=== PATIENT | female | born 1990 | race Caucasian/White ===

== ENCOUNTER 2022-05-31 20:15 | Observation (INO) | payer OTHER ==
[2022-05-31] MEDS ORDERED: MORPHINE SULFATE 2 MG INJ IV ONE (20:40)
[2022-05-31] MEDS ORDERED: Zofran 4 MG/2 ML VIAL IV ONE (20:42)
[2022-05-31] MEDS ORDERED: MORPHINE SULFATE 2 MG INJ ONE (20:43)
[2022-05-31] MEDS ORDERED: Sodium Chloride 0.9% 1000 ML 1,000 ML ONE (20:43)
[2022-05-31] MEDS ORDERED: Zofran 4 MG/2 ML VIAL ONE (20:43)
[2022-05-31] MEDS ORDERED: Sodium Chloride 0.9% 1000 ML 1,000 ML IV SCH (20:45)
[2022-05-31 21:04] LABS: Basophil (Absolute #) 0.03 x10^3/uL (0-0.4); Eosinophil % 0.5 % (0.00-5.0); Eosinophil (Absolute #) 0.07 x10^3/uL (0-0.5); Hematocrit 41.7 % (35-47); Hemoglobin 12.4 g/dL (12.0-16.0); Lymphocyte (Absolute #) 1.73 x10^3/uL (1.0-4.6); Lymphocytes % 13.2 % (24.0-44.0); Mean Cell Volume 94.1 fL (78-100); Mean Corpuscular Hgb Concent. 29.7 g/dL (32-36); Mean Platelet Volume 9.8 fL (7.5-11.0); Monocyte (Absolute #) 0.67 x10^3/uL (0.0-1.3); Monocytes % 5.1 % (0.0-12.0); Neutrophil % 80.7 % (36.0-66.0); Platelet Count 302 x10^3/uL (150-450); Red Blood Count 4.43 x10^6/uL (4.1-5.4); Red Cell Distribution Width 13.6 % (11.5-14.0); White Blood Count 13.1 x10^3/uL (4.0-10.5)
[2022-05-31 21:27] LABS: ALBUMIN 4.3 g/dL (3.5-5.0); ALKALINE PHOSPHATASE 47 U/L (38-126); ANION GAP 17.2 MEQ/L (5-15); BLOOD UREA NITROGEN 12 mg/dL (7-17); CHLORIDE 104 mmol/L (98-107); Calcium 9.3 mg/dL (8.4-10.2); Carbon Dioxide 18 mmol/L (22-30); Creatinine 1 0.66 mg/dL (0.52-1.04); EST GLOMERULAR FILTRATION RATE > 60.0 ML/MIN; Glucose 107 mg/dL (74-106); LIPASE 48 U/L (23-300); Potassium 4.3 mmol/L (3.5-5.1); SGOT/AST 25 U/L (14-36); SGPT/ALT 16 U/L (0-35); SODIUM 135 mmol/L (137-145); TROPONIN < 0.012 ng/mL (0.000-0.034); Total Protein 7.2 g/dL (6.3-8.2)
[2022-05-31] MEDS ORDERED: Hydromorphone 1 mg/ml Injection IV ONE (22:04)
--- NOTE | 2022-05-31 22:05 | ERPHSYRPT ---
- History of Present Illness Time Seen by Provider: 05/31/22 20:30 Historian: patient Exam Limitations: no limitations Patient Subjective Stated Complaint: pt states she has been feeling nauseated at 4pm today, states that she has vomited 4 times and has abdominal paion in the epigastric area that she rates as 7/10 Triage Nursing Assessment: pt is alert and oriented, walked into room without assist, ot was holding abdomen stating that she feels nauseated and has pain in abdomen 7/10 Physician History: Patient is a 31-year-old female presents to emergency department for evaluation of epigastric pain. Epigastric pain started at 4 PM today approximately 5 hours prior to arrival. Patient states he vomited 4 times. Patient states pain is worse after eating meals. Pain improves when she fast. Epigastric pain rated 7 out of 10. No associated chest pain or shortness of breath. No diarrhea. No trauma. Symptoms are mild to moderate in intensity. Palpation reproduces symptoms. Pain worsens after meals. Patient denies a history of the same. She voices no other complaints or concerns at this time. Portions of this note were created with voice recognition technology. There may be grammatical, spelling, punctuation or sound alike errors Timing/Duration: today Activities at Onset: none Quality: aching Abdominal Pain Onset Location: epigastric Pain Radiation: no radiation Severity of Pain-Max: moderate Severity of Pain-Current: mild Modifying Factors: Improves With: other Associated Symptoms: denies symptoms, nausea, vomiting Previous symptoms: no prior history Allergies/Adverse Reactions: Penicillins Allergy (Mild, Verified 05/11/13 04:16) amoxicillin Allergy (Verified 05/31/22 20:32) Sulfa (Sulfonamide Antibiotics) Allergy (Verified 05/31/22 20:32) Home Medications: No Home Meds [No Home Meds] 0 05/11/13 [History] Hx Tetanus, Diphtheria Vaccination/Date Given: Yes Hx Influenza Vaccination/Date Given: No Hx Pneumococcal Vaccination/Date Given: No Travel Risk - International Travel Have you traveled outside of the country in past 3 weeks: No - Coronavirus Screening Are you exhibiting any of the following symptoms?: No Close contact with a COVID-19 positive Pt in past 14-21 Days: No - Vaccine Status Have you recieved a Covid-19 vaccination: Yes Insurance Claims Supervisor: [employer] - Review of Systems Constitutional: No Symptoms, No Fever, No Chills Eyes: No Symptoms Ears, Nose, & Throat: No Symptoms Respiratory: No Symptoms, No Cough, No Dyspnea Cardiac: No Symptoms, No Chest Pain, No Edema, No Syncope Abdominal/Gastrointestinal: No Symptoms, No Abdominal Pain, No Nausea, No Vomiting, No Diarrhea Genitourinary Symptoms: Incontinence, No Dysuria Musculoskeletal: No Symptoms, No Back Pain, No Neck Pain Skin: No Symptoms, No Rash Neurological: No Symptoms, No Dizziness, No Focal Weakness, No Sensory Changes Psychological: No Symptoms Endocrine: No Symptoms Hematologic/Lymphatic: No Symptoms Immunological/Allergic: No Symptoms All Other Systems: Reviewed and Negative - Past Medical History Pertinent Past Medical History: No - Past Surgical History Past Surgical History: No - Social History Smoking Status: Never smoker Exposure to second hand smoke: No Alcohol Use: None Drug Use: none Patient Lives Alone: No Significant Family History: no pertinent family hx - Female History Hx Last Menstrual Period: 05/15/22 Hx Now: No - Nursing Vital Signs Nursing Vital Signs: Initial Vital Signs Temperature 98.7 F 05/31/22 20:22 Pulse Rate 90 05/31/22 20:22 Respiratory Rate 18 05/31/22 20:22 Blood Pressure 142/85 05/31/22 20:22 O2 Sat by Pulse Oximetry 100 05/31/22 20:22 Pain Scale Pain Intensity 7 - Physical Exam General Appearance: no apparent distress, alert Eye Exam: PERRL/EOMI, eyes nml inspection Ears, Nose, Throat Exam: normal ENT inspection, TMs normal, pharynx normal, moist mucous membranes Neck Exam: normal inspection, non-tender, supple, full range of motion Respiratory Exam: normal breath sounds, lungs clear, airway intact, No chest tenderness, No respiratory distress Cardiovascular Exam: regular rate/rhythm, normal heart sounds, normal peripheral pulses Gastrointestinal/Abdomen Exam: soft, tenderness, other (Epigastric tenderness to palpation. No right upper quadrant pain. Overlying soft tissue intact. No signs of trauma.), No mass Back Exam: normal inspection, normal range of motion, No CVA tenderness, No ada tebral tenderness Extremity Exam: normal inspection, normal range of motion, pelvis stable Neurologic Exam: alert, oriented x 3, cooperative, normal mood/affect, nml cerebellar function, sensation nml, No motor deficits Skin Exam: normal color, warm, dry Lymphatic Exam: No adenopathy SpO2 Interpretation: normal SpO2: 98 O2 Delivery: Room Air - Course Nursing assessment & vital signs reviewed: Yes - CT Exams Abdomen/Pelvis CT Interpretation: Tele-radiologist Report (Many gallstones. No definitive inflammatory change. I asked appendix is distended up to 8 mm. There is subtle stranding around the pancreas. Mild early acute pancreatitis not excluded based on examination but the history is that of upper abdominal pain.) - Radiology Ultrasound Exam Gallbladder Ultrasound: discussed w/radiologist (Per nurse transplant cholelithiasis. No cholecystitis) Ordered Tests: Active Orders 24 hr Category Date Time Status IV Insertion STAT Care 05/31/22 20:40 Active NPO Diet 05/31/22 22:05 Active ABDOMEN AND PELVIS W/0 CONTRAS [CT] Stat Exams 05/31/22 20:40 Taken GALLBLADDER [US] Stat Exams 05/31/22 22:48 Taken CBC W DIFF Stat Lab 05/31/22 20:55 Completed CMP Stat Lab 05/31/22 20:55 Completed HCG,QUALITATIVE URINE Stat Lab 05/31/22 22:13 Completed LIPASE Stat Lab 05/31/22 20:55 Completed TROPONIN Q4H Lab 06/01/22 00:45 Ordered TROPONIN Q4H Lab 06/01/22 04:45 Ordered TROPONIN Stat Lab 05/31/22 20:55 Completed UA W/RFX CULTURE Stat Lab 05/31/22 22:13 Completed Transfer Order Routine Transfer 05/31/22 Ordered Medication Summary Generic Name Dose Route Start Last Admin Trade Name Freq PRN Reason Stop Dose Admin Sodium Chloride 1,000 mls @ 100 mls/hr 05/31/22 20:45 05/31/22 20:46 Sodium Chloride 0.9% 1000 Ml IV 06/30/22 20:44 100 mls/hr .Q10H WILLIAM Administration Discontinued Medications Generic Name Dose Route Start Last Admin Trade Name Freq PRN Reason Stop Dose Admin Hydromorphone HCl 0.5 mg 05/31/22 22:04 05/31/22 22:06 Hydromorphone 1 Mg/1ml Inj 1 Mg/Ml Syringe IV 05/31/22 22:05 0.5 mg STAT ONE Administration Hydromorphone HCl Confirm 05/31/22 22:06 Hydromorphone 1 Mg/1ml Inj 1 Mg/Ml Syringe Administered 05/31/22 22:07 Dose 1 mg .ROUTE .STK-MED ONE Morphine Sulfate 2 mg 05/31/22 20:40 05/31/22 20:46 Morphine Sulfate 2 Mg/Ml Inj IV 05/31/22 20:41 2 mg STAT ONE Administration Morphine Sulfate Confirm 05/31/22 20:43 Morphine Sulfate 2 Mg/Ml Inj Administered 05/31/22 20:44 Dose 2 mg .ROUTE .STK-MED ONE Ondansetron HCl 4 mg 05/31/22 20:42 05/31/22 20:46 Ondansetron Hcl 4 Mg/2 Ml Vial IV 05/31/22 20:43 4 mg STAT ONE Administration Ondansetron HCl Confirm 05/31/22 20:43 Ondansetron Hcl 4 Mg/2 Ml Vial Administered 05/31/22 20:44 Dose 4 mg .ROUTE .STK-MED ONE Lab/Rad Data: Laboratory Result Diagrams 05/31/22 20:55 05/31/22 20:55 Laboratory Results 05/31/22 05/31/22 05/31/22 Range/Units 22:13 22:13 21:58 WBC (4.0-10.5) x10^3/uL RBC (4.1-5.4) x10^6/uL Hgb (12.0-16.0) g/dL Hct (35-47) % MCV (78-100) fL MCH (26-32) pg MCHC (32-36) g/dL RDW (11.5-14.0) % Plt Count (150-450) x10^3/uL MPV (7.5-11.0) fL Gran % (36.0-66.0) % Immature Gran % (Auto) (0.00-0.4) % Nucleat RBC Rel Count (0.00-0.1) % Eos # (Auto) (0-0.5) x10^3/uL Immature Gran # (Auto) (0.00-0.03) x10^3u/L Absolute Lymphs (auto) (1.0-4.6) x10^3/uL Absolute Monos (auto) (0.0-1.3) x10^3/uL Absolute Nucleated RBC (0.00-0.01) x10^3u/L Lymphocytes % (24.0-44.0) % Monocytes % (0.0-12.0) % Eosinophils % (0.00-5.0) % Basophils % (0.0-0.4) % Absolute Granulocytes (1.4-6.9) x10^3/uL Basophils # (0-0.4) x10^3/uL Sodium (137-145) mmol/L Potassium (3.5-5.1) mmol/L Chloride (98-107) mmol/L Carbon Dioxide (22-30) mmol/L Anion Gap (5-15) MEQ/L BUN (7-17) mg/dL Creatinine (0.52-1.04) mg/dL Estimated GFR ML/MIN Glucose (74-106) mg/dL Calcium (8.4-10.2) mg/dL Total Bilirubin (0.2-1.3) mg/dL AST (14-36) U/L ALT (0-35) U/L Alkaline Phosphatase (38-126) U/L Troponin I (0.000-0.034) ng/mL Serum Total Protein (6.3-8.2) g/dL Albumin (3.5-5.0) g/dL Lipase (23-300) U/L Urinalys Dipstick Clnc MAIN LAB Urine Color YELLOW (YELLOW) Urine Appearance CLEAR (CLEAR) Urine pH 6.0 (5-6) Ur Specific [place] 1.015 (1.005-1.025) POC Urine Protein Conf NEGATIVE (Negative) Urine Ketones NEGATIVE (NEGATIVE) Urine Nitrite NEGATIVE (NEGATIVE) Urine Bilirubin NEGATIVE (NEGATIVE) Urine Urobilinogen 0.2 (0-1) mg/dL Urine Leukocytes NEGATIVE (NEGATIVE) Urine WBC (Auto) 0-2 (0-5) /HPF Urine RBC (Auto) NONE (0-2) /HPF U Epithel Cells (Auto) RARE (FEW) /HPF Urine Bacteria (Auto) RARE (NEGATIVE) /HPF Urine RBC NEGATIVE (0-5) Geo/ul Other Casts (Auto) NEGATIVE (NEGATIVE) /LPF Urine Mucus (Auto) SLIGHT (NEGATIVE) /HPF Ur Culture Indicated? NO Urine Glucose NEGATIVE (NEGATIVE) mg/dL Urine HCG, Qual NEGATIVE (Negative) Influenza Type A Ag NEGATIVE (NEGATIVE) Influenza Type B Ag NEGATIVE (NEGATIVE) RSV (PCR) NEGATIVE (Negative) SARS-CoV-2 (PCR) NEGATIVE (NEGATIVE) 05/31/22 05/31/22 Range/Units 20:55 20:55 WBC 13.1 H (4.0-10.5) x10^3/uL RBC 4.43 (4.1-5.4) x10^6/uL Hgb 12.4 (12.0-16.0) g/dL Hct 41.7 (35-47) % MCV 94.1 (78-100) fL MCH 28.0 (26-32) pg MCHC 29.7 L (32-36) g/dL RDW 13.6 (11.5-14.0) % Plt Count 302 (150-450) x10^3/uL MPV 9.8 (7.5-11.0) fL Gran % 80.7 H (36.0-66.0) % Immature Gran % (Auto) 0.3 (0.00-0.4) % Nucleat RBC Rel Count 0.0 (0.00-0.1) % Eos # (Auto) 0.07 (0-0.5) x10^3/uL Immature Gran # (Auto) 0.04 H (0.00-0.03) x10^3u/L Absolute Lymphs (auto) 1.73 (1.0-4.6) x10^3/uL Absolute Monos (auto) 0.67 (0.0-1.3) x10^3/uL Absolute Nucleated RBC 0.00 (0.00-0.01) x10^3u/L Lymphocytes % 13.2 L (24.0-44.0) % Monocytes % 5.1 (0.0-12.0) % Eosinophils % 0.5 (0.00-5.0) % Basophils % 0.2 (0.0-0.4) % Absolute Granulocytes 10.60 H (1.4-6.9) x10^3/uL Basophils # 0.03 (0-0.4) x10^3/uL Sodium 135 L (137-145) mmol/L Potassium 4.3 (3.5-5.1) mmol/L Chloride 104 (98-107) mmol/L Carbon Dioxide 18 L (22-30) mmol/L Anion Gap 17.2 H (5-15) MEQ/L BUN 12 (7-17) mg/dL Creatinine 0.66 (0.52-1.04) mg/dL Estimated GFR > 60.0 ML/MIN Glucose 107 H (74-106) mg/dL Calcium 9.3 (8.4-10.2) mg/dL Total Bilirubin 0.60 (0.2-1.3) mg/dL AST 25 (14-36) U/L ALT 16 (0-35) U/L Alkaline Phosphatase 47 (38-126) U/L Troponin I < 0.012 (0.000-0.034) ng/mL Serum Total Protein 7.2 (6.3-8.2) g/dL Albumin 4.3 (3.5-5.0) g/dL Lipase 48 (23-300) U/L Urinalys Dipstick Clnc Urine Color (YELLOW) Urine Appearance (CLEAR) Urine pH (5-6) Ur Specific [place] (1.005-1.025) POC Urine Protein Conf (Negative) Urine Ketones (NEGATIVE) Urine Nitrite (NEGATIVE) Urine Bilirubin (NEGATIVE) Urine Urobilinogen (0-1) mg/dL Urine Leukocytes (NEGATIVE) Urine WBC (Auto) (0-5) /HPF Urine RBC (Auto) (0-2) /HPF U Epithel Cells (Auto) (FEW) /HPF Urine Bacteria (Auto) (NEGATIVE) /HPF Urine RBC (0-5) Geo/ul Other Casts (Auto) (NEGATIVE) /LPF Urine Mucus (Auto) (NEGATIVE) /HPF Ur Culture Indicated? Urine Glucose (NEGATIVE) mg/dL Urine HCG, Qual (Negative) Influenza Type A Ag (NEGATIVE) Influenza Type B Ag (NEGATIVE) RSV (PCR) (Negative) SARS-CoV-2 (PCR) (NEGATIVE) - Progress Progress: improved Progress Note: Patient reassessed. Pain improved. Patient pain is intractable. Work-up r eveals a pancreatitis. Patient currently NPO. Patient receiving IV fluids and pain control. CAT scan reveals a cholelithiasis. Ultrasound right upper quadrant negative for cholecystitis. There is an incidental observation of a slightly dilated appendix at 8 mm. No fat stranding at this location. No right lower quadrant pain. Case discussed with who agrees to consultation. We will obtain a.m. labs including liver function tests and lipase. No indication for antibiotics at this time. Case discussed with Dr. Ross who accepts admission to observation. Plan of care discussed with patient. She agrees to admission at [facility] for further evaluation and treatment. Portions of this note were created with voice recognition technology. There may be grammatical, spelling, punctuation or sound alike errors 05/31/22 23:[address] Sarah Will see patient in: hospital (observation) Counseled pt/family regarding: lab results, diagnosis, rad results - Departure Departure Disposition: Observation Clinical Impression: Gallstone pancreatitis, Distended appendix, Epigastric pain Condition: Stable Critical Care Time: No Referrals: EMILY PORTILLO [Primary Care Provider] - Follow up/PCP as directed
[2022-05-31] MEDS ORDERED: Hydromorphone 1 mg/ml Injection ONE (22:06)
[2022-05-31 22:23] LABS: Bacteria RARE /HPF (NEGATIVE); Epithelial Cells RARE /HPF (FEW); Mucus SLIGHT /HPF (NEGATIVE); WBC 0-2 /HPF (0-5)
[2022-05-31 22:24] LABS: Appearance CLEAR (CLEAR); Bilirubin NEGATIVE (NEGATIVE); Dipstick done @ ? MAIN LAB; Glucose NEGATIVE (NEGATIVE); Ketones NEGATIVE (NEGATIVE); Nitrite NEGATIVE (NEGATIVE); Protein,Urine Dip NEGATIVE (Negative); RBC NEGATIVE Ery/ul (0-5); Specific Gravity 1.015 (1.005-1.025); Urobilinogen 0.2 mg/dL (0-1)
[2022-05-31 22:27] LABS: Urine Cultured Indicated? NO
[2022-05-31 22:37] LABS: INFLUENZA A NEGATIVE (NEGATIVE); INFLUENZA B NEGATIVE (NEGATIVE); RESPIRATORY SYNCTIAL VIRUS NEGATIVE (Negative); SARS-CoV-2 Xpert Express NEGATIVE (NEGATIVE)
[2022-06-01] MEDS ORDERED: Sodium Chloride 0.9% 1000 ML 1,000 ML IV SCH (00:01)
[2022-06-01] MEDS ORDERED: Zofran 4 MG/2 ML VIAL IV PRN (00:01)
[2022-06-01] MEDS: Hydromorphone 1 mg/ml Injection IV PRN ×2 (04:31→08:23)
[2022-06-01 05:22] LABS: Absolute Neutrophil Ct (ANC) 12.76 x10^3/uL (1.4-6.9); Basophil (Absolute #) 0.06 x10^3/uL (0-0.4); Eosinophil % 0.4 % (0.00-5.0); Eosinophil (Absolute #) 0.06 x10^3/uL (0-0.5); Hematocrit 36.7 % (35-47); Hemoglobin 11.8 g/dL (12.0-16.0); Lymphocyte (Absolute #) 2.76 x10^3/uL (1.0-4.6); Lymphocytes % 16.7 % (24.0-44.0); Mean Cell Volume 87.8 fL (78-100); Mean Corpuscular Hemoglobin 28.2 pg (26-32); Mean Corpuscular Hgb Concent. 32.2 g/dL (32-36); Mean Platelet Volume 9.5 fL (7.5-11.0); Monocyte (Absolute #) 0.83 x10^3/uL (0.0-1.3); Platelet Count 338 x10^3/uL (150-450); Red Blood Count 4.18 x10^6/uL (4.1-5.4); Red Cell Distribution Width 13.8 % (11.5-14.0); White Blood Count 16.6 x10^3/uL (4.0-10.5)
[2022-06-01 05:27] LABS: ALBUMIN 3.7 g/dL (3.5-5.0); ALKALINE PHOSPHATASE 40 U/L (38-126); ANION GAP 9.7 MEQ/L (5-15); BLOOD UREA NITROGEN 10 mg/dL (7-17); CHLORIDE 104 mmol/L (98-107); Calcium 8.9 mg/dL (8.4-10.2); Carbon Dioxide 26 mmol/L (22-30); EST GLOMERULAR FILTRATION RATE > 60.0 ML/MIN; Glucose 85 mg/dL (74-106); LIPASE 43 U/L (23-300); SGOT/AST 22 U/L (14-36); SGPT/ALT 14 U/L (0-35); SODIUM 136 mmol/L (137-145); Total Protein 6.4 g/dL (6.3-8.2)
[2022-06-01] MEDS ORDERED: DILAUDID 1 MG/1ML PCA IV PRN (09:01)
--- NOTE | 2022-06-01 09:04 | XRAY ---
Exam: Gallbladder ultrasound from 05/31/2022. Comparison: CT of the abdomen and pelvis without IV contrast from 05/31/2022. Indication: Cholecystitis. Findings: The pancreas is incompletely seen due to overlying bowel gas. A portion of the body of the pancreas is seen which appears unremarkable. The liver reveals a uniform attenuation without mass or intrahepatic biliary duct distention. The biotechnologist took a craniocaudal measurement of the right hepatic lobe of 18.3 cm. However, I believe this may be slightly overestimated as the inferior margin is not well seen. Right hepatic lobe length measuring about 17.[address] image obtained the same evening. The overall volume of the liver does not appear significantly increased. No free fluid is seen within the right upper quadrant. Normal color blood flow is seen within the main portal vein towards the liver. The gallbladder is mildly distended and reveals many intraluminal echogenic posterior shadowing gallstones. The gallbladder wall thickness measures 2.6 mm which is within normal limits. No pericholecystic fluid or edema is seen. The proximal common bile duct measures 5.2 mm which is within normal limits. The right kidney measures 10.3 cm in length and reveals no hydronephrosis or mass. Impression: 1. Extensive cholelithiasis without abnormal gallbladder enlargement, gallbladder wall thickening, or biliary duct distention. The biotechnologist made no mention of whether the sonographic Doyle's sign was positive. 2. Poor visualization of the pancreas due to adjacent bowel gas. 3. The remainder of the right upper quadrant of the abdomen appears unremarkable.
[2022-06-01] MEDS ORDERED: Narcan 0.4 MG/ML IV PRN (09:15)
--- NOTE | 2022-06-01 09:44 | XRAY ---
Exam: CT of the abdomen and pelvis without IV contrast from 05/31/2022. CTDI: 14.82 mGy Comparison: CT of the abdomen and pelvis without IV contrast from 05/11/2013. Indication: 31-year-old female with mid to upper abdominal pain associated with nausea/vomiting. Technique: Non-IV contrast axial images were obtained through the abdomen and pelvis. Reconstructed coronal and sagittal images were created and reviewed. No oral contrast was given. Findings: The visualized lung bases appear clear. Assessment of the solid organs is limited without the use of IV contrast. With this limitation in mind, the liver and spleen appear of unremarkable size and uniform attenuation. No intrahepatic biliary duct distention is seen. The gallbladder reveals average distention and is remarkable for many intraluminal gallstones measuring up to 1.4 cm in maximum diameter. I see no definite gallbladder wall thickening or pericholecystic fluid/edema. No abnormal distention of the common bile duct is seen. The pancreas and adrenal glands appear unremarkable. No inflammatory changes are seen surrounding the pancreas. The kidneys are of normal size and shape. No renal calculi or hydronephrosis is seen. The ureters are of normal diameter and reveal no ureterolith. No urinary bladder stone is seen. The abdominal aorta reveals no evidence of aneurysm. No abnormal retroperitoneal lymphadenopathy is seen. There is no free air or ventral abdominal wall hernia seen. The appendix within the right lower quadrant appears mildly dilated measuring at least 8 mm in diameter. This is in contrast to that seen on 05/11/2013 when it measured about 4 mm to 5 mm in diameter. The appendiceal lumen appears to contain some debris within it. There is a question of some subtle stranding within the periappendiceal region. It is difficult to exclude early appendicitis in this case, but I am not given a history of right lower quadrant abdominal pain. Correlate clinically. Some scattered stool is seen throughout a nondilated colon. There is no evidence of bowel obstruction or gross bowel wall thickening. No significant colonic diverticula are seen. The uterus is anteflexed. Both ovaries are identified and appear unremarkable. The urinary bladder is partially distended and reveals no gross abnormality. No abnormal pelvic mass, pelvic lymphadenopathy, or free intraperitoneal fluid is seen. The skeleton reveals no acute fracture or aggressive bone lesion. Minimal anterior vertebral endplate spurring is seen within the visualized thoracolumbar spine. Impression: 1. The appendix within the right lower quadrant appears to contain some debris within it and measures up to 8 mm in diameter with equivocal evidence of some minimal periappendiceal stranding. From an imaging standpoint, early appendicitis cannot be excluded by this study, although I am not given any history of right lower quadrant abdominal pain. Correlate clinically. 2. Extensive cholelithiasis without evidence of gallbladder wall thickening or biliary duct distention. 3. The remainder of the CT of the abdomen and pelvis without IV contrast appears unremarkable.
[2022-06-01] MEDS ORDERED: Paxil 20 MG PO SCH ×2 (10:00→22:00)
[2022-06-01] MEDS: CLINDAMYCIN-D5W 600 MG/50 ML*** 600 MG/50 ML BAG IV SCH ×4 (10:15→23:26)
--- NOTE | 2022-06-01 13:45 | PCM.HP ---
History of Present Illness - Chief Complaint Chief Complaint: Pancreatitis, cholelithiasis History of Present Illness: is a 31 year old female pt of Jennifer Chew who was admitted through ER with pancreatitis and cholelithiasis. She has a long hx of abd pain with eating "crap" - she will improve her diet and feel good for some time. Yesterday she had sudden onset of epigastric pain, 9/10, with several episodes of vomiting. Came to ER and CT showed multiple gallstones, no active cholecystitis. She did have 8mm appendix with stranding. LFTs nl. She was admitted for observation and tx; surgery was consulted. Currently (approx 0815) having 5/10 epigastric pain. Denies fever, D, melena, hematochezia. Ate well until yesterday when pain started. - Review of Systems Abdominal/Gastrointestinal: Abdominal Pain, Nausea, Vomiting Psychological: Anxiety, Depression, No Suicidal Ideations, No Homicidal Ideations All Other Systems: Reviewed and Negative Medications & Allergies Home Medications: Home Medication List Paroxetine HCl 20 mg [Paxil 20 MG] 20 mg PO DAILY 06/01/22 [History Confirmed 06/01/22] Semaglutide [Ozempic] 1 mg SQ WEEKLY 06/01/22 [History Confirmed 06/01/22] Allergies/Adverse Reactions: Allergies Allergy/AdvReac Type Severity Reaction Status Date / Time Penicillins Allergy Mild Verified 05/11/13 04:16 amoxicillin Allergy Verified 05/31/22 20:32 Sulfa (Sulfonamide Allergy Verified 05/31/22 20:32 Antibiotics) - Past Medical History Past Medical History: No Neurological History: No Pertinent History ENT History: No Pertinent History Cardiac History: No Pertinent History Respiratory History: No Pertinent History Musculoskelatal History: No Pertinent History GI Medical History: Gallbladder Disease, Pancreatitis History: No Pertinent History Pyscho-Social History: Anxiety Reproductive Disorders: No Pertinent History Comment: insulin resistant - Female History Hx Last Menstrual Period: 05/15/22 Are you now?: No - Past Surgical History Past Surgical History: No - Social History Smoking Status: Current every day smoker Exposure to second hand smoke: No Alcohol: None Drug Use: none Significant Family History: no pertinent family hx - Physical Exam Vital Signs: Vital Signs - 24 hr Temp Pulse Resp BP Pulse Ox 06/01/22 12:00 18 06/01/22 11:42 97.9 F 59 L 16 88/52 96 06/01/22 09:42 18 95 06/01/22 09:37 96 06/01/22 07:11 97.9 F 65 16 108/57 95 06/01/22 04:00 97.8 F 61 18 104/57 94 L 06/01/22 00:27 97.7 F 70 18 108/57 96 05/31/22 23:21 98 05/31/22 23:03 102 H 18 141/86 96 05/31/22 22:02 78 18 146/92 98 05/31/22 21:00 64 18 145/92 98 05/31/22 20:22 98.7 F 90 18 142/85 100 General Appearance: no apparent distress, alert Neurologic Exam: oriented x 3, cooperative, normal mood/affect Eye Exam: eyes nml inspection Ears, Nose, Throat Exam: moist mucous membranes Neck Exam: normal inspection, non-tender, No lymphadenopathy, No thyromegaly Respiratory Exam: normal breath sounds, lungs clear, No crackles/rales, No rhonchi, No wheezing Cardiovascular Exam: regular rate/rhythm, normal heart sounds, No murmur Gastrointestinal/Abdomen Exam: soft, normal bowel sounds, tenderness (epigastrum, ruq, RLQ), No distention, No mass, No guarding, No rebound Back Exam: normal inspection, No rash Extremity Exam: normal inspection, No pedal edema, No swelling Skin Exam: normal color, warm, dry, No rash Results - Labs Lab/Micro Results: Lab Results-Last 24 Hours 05/31/22 05/31/22 05/31/22 Range/Units 20:55 20:55 21:58 WBC 13.1 H (4.0-10.5) x10^3/uL RBC 4.43 (4.1-5.4) x10^6/uL Hgb 12.4 (12.0-16.0) g/dL Hct 41.7 (35-47) % MCV 94.1 (78-100) fL MCH 28.0 (26-32) pg MCHC 29.7 L (32-36) g/dL RDW 13.6 (11.5-14.0) % Plt Count 302 (150-450) x10^3/uL MPV 9.8 (7.5-11.0) fL Gran % 80.7 H (36.0-66.0) % Immature Gran % (Auto) 0.3 (0.00-0.4) % Nucleat RBC Rel Count 0.0 (0.00-0.1) % Eos # (Auto) 0.07 (0-0.5) x10^3/uL Immature Gran # (Auto) 0.04 H (0.00-0.03) x10^3u/L Absolute Lymphs (auto) 1.73 (1.0-4.6) x10^3/uL Absolute Monos (auto) 0.67 (0.0-1.3) x10^3/uL Absolute Nucleated RBC 0.00 (0.00-0.01) x10^3u/L Lymphocytes % 13.2 L (24.0-44.0) % Monocytes % 5.1 (0.0-12.0) % Eosinophils % 0.5 (0.00-5.0) % Basophils % 0.2 (0.0-0.4) % Absolute Granulocytes 10.60 H (1.4-6.9) x10^3/uL Basophils # 0.03 (0-0.4) x10^3/uL Sodium 135 L (137-145) mmol/L Potassium 4.3 (3.5-5.1) mmol/L Chloride 104 (98-107) mmol/L Carbon Dioxide 18 L (22-30) mmol/L Anion Gap 17.2 H (5-15) MEQ/L BUN 12 (7-17) mg/dL Creatinine 0.66 (0.52-1.04) mg/dL Estimated GFR > 60.0 ML/MIN Glucose 107 H (74-106) mg/dL Calcium 9.3 (8.4-10.2) mg/dL Total Bilirubin 0.60 (0.2-1.3) mg/dL AST 25 (14-36) U/L ALT 16 (0-35) U/L Alkaline Phosphatase 47 (38-126) U/L Troponin I < 0.012 (0.000-0.034) ng/mL Serum Total Protein 7.2 (6.3-8.2) g/dL Albumin 4.3 (3.5-5.0) g/dL Lipase 48 (23-300) U/L Urinalys Dipstick Clnc Urine Color (YELLOW) Urine Appearance (CLEAR) Urine pH (5-6) Ur Specific [place] (1.005-1.025) POC Urine Protein Conf (Negative) Urine Ketones (NEGATIVE) Urine Nitrite (NEGATIVE) Urine Bilirubin (NEGATIVE) Urine Urobilinogen (0-1) mg/dL Urine Leukocytes (NEGATIVE) Urine WBC (Auto) (0-5) /HPF Urine RBC (Auto) (0-2) /HPF U Epithel Cells (Auto) (FEW) /HPF Urine Bacteria (Auto) (NEGATIVE) /HPF Urine RBC (0-5) Geo/ul Other Casts (Auto) (NEGATIVE) /LPF Urine Mucus (Auto) (NEGATIVE) /HPF Ur Culture Indicated? Urine Glucose (NEGATIVE) mg/dL Urine HCG, Qual (Negative) Influenza Type A Ag NEGATIVE (NEGATIVE) Influenza Type B Ag NEGATIVE (NEGATIVE) RSV (PCR) NEGATIVE (Negative) SARS-CoV-2 (PCR) NEGATIVE (NEGATIVE) 05/31/22 05/31/22 06/01/22 Range/Units 22:13 22:13 04:58 WBC (4.0-10.5) x10^3/uL RBC (4.1-5.4) x10^6/uL Hgb (12.0-16.0) g/dL Hct (35-47) % MCV (78-100) fL MCH (26-32) pg MCHC (32-36) g/dL RDW (11.5-14.0) % Plt Count (150-450) x10^3/uL MPV (7.5-11.0) fL Gran % (36.0-66.0) % Immature Gran % (Auto) (0.00-0.4) % Nucleat RBC Rel Count (0.00-0.1) % Eos # (Auto) (0-0.5) x10^3/uL Immature Gran # (Auto) (0.00-0.03) x10^3u/L Absolute Lymphs (auto) (1.0-4.6) x10^3/uL Absolute Monos (auto) (0.0-1.3) x10^3/uL Absolute Nucleated RBC (0.00-0.01) x10^3u/L Lymphocytes % (24.0-44.0) % Monocytes % (0.0-12.0) % Eosinophils % (0.00-5.0) % Basophils % (0.0-0.4) % Absolute Granulocytes (1.4-6.9) x10^3/uL Basophils # (0-0.4) x10^3/uL Sodium (137-145) mmol/L Potassium (3.5-5.1) mmol/L Chloride (98-107) mmol/L Carbon Dioxide (22-30) mmol/L Anion Gap (5-15) MEQ/L BUN (7-17) mg/dL Creatinine (0.52-1.04) mg/dL Estimated GFR ML/MIN Glucose (74-106) mg/dL Calcium (8.4-10.2) mg/dL Total Bilirubin (0.2-1.3) mg/dL AST (14-36) U/L ALT (0-35) U/L Alkaline Phosphatase (38-126) U/L Troponin I < 0.012 (0.000-0.034) ng/mL Serum Total Protein (6.3-8.2) g/dL Albumin (3.5-5.0) g/dL Lipase (23-300) U/L Urinalys Dipstick Clnc MAIN LAB Urine Color YELLOW (YELLOW) Urine Appearance CLEAR (CLEAR) Urine pH 6.0 (5-6) Ur Specific [place] 1.015 (1.005-1.025) POC Urine Protein Conf NEGATIVE (Negative) Urine Ketones NEGATIVE (NEGATIVE) Urine Nitrite NEGATIVE (NEGATIVE) Urine Bilirubin NEGATIVE (NEGATIVE) Urine Urobilinogen 0.2 (0-1) mg/dL Urine Leukocytes NEGATIVE (NEGATIVE) Urine WBC (Auto) 0-2 (0-5) /HPF Urine RBC (Auto) NONE (0-2) /HPF U Epithel Cells (Auto) RARE (FEW) /HPF Urine Bacteria (Auto) RARE (NEGATIVE) /HPF Urine RBC NEGATIVE (0-5) Geo/ul Other Casts (Auto) NEGATIVE (NEGATIVE) /LPF Urine Mucus (Auto) SLIGHT (NEGATIVE) /HPF Ur Culture Indicated? NO Urine Glucose NEGATIVE (NEGATIVE) mg/dL Urine HCG, Qual NEGATIVE (Negative) Influenza Type A Ag (NEGATIVE) Influenza Type B Ag (NEGATIVE) RSV (PCR) (Negative) SARS-CoV-2 (PCR) (NEGATIVE) 06/01/22 06/01/22 Range/Units 04:58 04:58 WBC 16.6 H (4.0-10.5) x10^3/uL RBC 4.18 (4.1-5.4) x10^6/uL Hgb 11.8 L (12.0-16.0) g/dL Hct 36.7 (35-47) % MCV 87.8 D (78-100) fL MCH 28.2 (26-32) pg MCHC 32.2 (32-36) g/dL RDW 13.8 (11.5-14.0) % Plt Count 338 (150-450) x10^3/uL MPV 9.5 (7.5-11.0) fL Gran % 77.0 H (36.0-66.0) % Immature Gran % (Auto) 0.5 H (0.00-0.4) % Nucleat RBC Rel Count 0.0 (0.00-0.1) % Eos # (Auto) 0.06 (0-0.5) x10^3/uL Immature Gran # (Auto) 0.08 H (0.00-0.03) x10^3u/L Absolute Lymphs (auto) 2.76 (1.0-4.6) x10^3/uL Absolute Monos (auto) 0.83 (0.0-1.3) x10^3/uL Absolute Nucleated RBC 0.00 (0.00-0.01) x10^3u/L Lymphocytes % 16.7 L (24.0-44.0) % Monocytes % 5.0 (0.0-12.0) % Eosinophils % 0.4 (0.00-5.0) % Basophils % 0.4 (0.0-0.4) % Absolute Granulocytes 12.76 H (1.4-6.9) x10^3/uL Basophils # 0.06 (0-0.4) x10^3/uL Sodium 136 L (137-145) mmol/L Potassium 4.0 (3.5-5.1) mmol/L Chloride 104 (98-107) mmol/L Carbon Dioxide 26 (22-30) mmol/L Anion Gap 9.7 (5-15) MEQ/L BUN 10 (7-17) mg/dL Creatinine 0.70 (0.52-1.04) mg/dL Estimated GFR > 60.0 ML/MIN Glucose 85 (74-106) mg/dL Calcium 8.9 (8.4-10.2) mg/dL Total Bilirubin 0.50 (0.2-1.3) mg/dL AST 22 (14-36) U/L ALT 14 (0-35) U/L Alkaline Phosphatase 40 (38-126) U/L Troponin I (0.000-0.034) ng/mL Serum Total Protein 6.4 (6.3-8.2) g/dL Albumin 3.7 (3.5-5.0) g/dL Lipase 43 (23-300) U/L Urinalys Dipstick Clnc Urine Color (YELLOW) Urine Appearance (CLEAR) Urine pH (5-6) Ur Specific [place] (1.005-1.025) POC Urine Protein Conf (Negative) Urine Ketones (NEGATIVE) Urine Nitrite (NEGATIVE) Urine Bilirubin (NEGATIVE) Urine Urobilinogen (0-1) mg/dL Urine Leukocytes (NEGATIVE) Urine WBC (Auto) (0-5) /HPF Urine RBC (Auto) (0-2) /HPF U Epithel Cells (Auto) (FEW) /HPF Urine Bacteria (Auto) (NEGATIVE) /HPF Urine RBC (0-5) [place]/ul Other Casts (Auto) (NEGATIVE) /LPF Urine Mucus (Auto) (NEGATIVE) /HPF Ur Culture Indicated? Urine Glucose (NEGATIVE) mg/dL Urine HCG, Qual (Negative) Influenza Type A Ag (NEGATIVE) Influenza Type B Ag (NEGATIVE) RSV (PCR) (Negative) SARS-CoV-2 (PCR) (NEGATIVE) - Radiology Impressions Radiology Exams & Impressions: Radiology Procedures Category Date Time Status ABDOMEN AND PELVIS W/0 CONTRAS [CT] Stat Exams 05/31/22 20:40 Completed GALLBLADDER [US] Stat Exams 05/31/22 22:48 Completed Assessment/Plan (1) Cholelithiasis Current Visit: Yes Status: Acute Qualifiers: Cholelithiasis location: gallbladder Cholecystitis presence: without cholecystitis Biliary obstruction: without biliary obstruction Qualified Code(s): K80.20 - Calculus of gallbladder without cholecystitis without obstruction Assessment & Plan: No sign of obstruction. Anticipate, however, that surgery will perform cholecystectomy, thank you. (2) Epigastric pain Current Visit: Yes Status: Acute Code(s): R10.13 - EPIGASTRIC PAIN (3) Gallstone pancreatitis Current Visit: Yes Status: Acute Assessment & Plan: lipase is nl, but there is stranding on CT scan. Code(s): K85.10 - BILIARY ACUTE PANCREATITIS WITHOUT NECROSIS OR INFECTION (4) Leukocytosis Current Visit: Yes Status: Acute Qualifiers: Leukocytosis type: unspecified Qualified Code(s): D72.829 - Elevated white blood cell count, unspecified Assessment & Plan: Starting pt on IV antibiotics, WBC has increased since yesterday. Tx for presumptive intra abdominal infection with clindamycin. Code(s): D72.829 - ELEVATED WHITE BLOOD CELL COUNT, UNSPECIFIED
[2022-06-01] MEDS ORDERED: Sensorcaine 0.25% 10 ML ONE (15:37)
[2022-06-01] MEDS ORDERED: Lactated Ringers 1,000 ML IV ONE (15:58)
[2022-06-01] MEDS ORDERED: Levofloxacin 500MG/100ML D5W 500 MG/100 ML BAG IV SCH (16:15)
[2022-06-01] MEDS ORDERED: Transderm Scop 1.5MG Patch TOP SCH (16:15)
[2022-06-01] MEDS ORDERED: Pepcid 20 MG VIAL IV SCH (16:15)
[2022-06-01] MEDS ORDERED: Reglan 10 MG/2 ML IV SCH (16:15)
[2022-06-01] MEDS ORDERED: CLINDAMYCIN-D5W 900 MG/50 ML*** 900 MG/50 ML BAG IV SCH (16:30)
[2022-06-01] MEDS ORDERED: Lactated Ringers 1,000 ML IV SCH (16:30)
[2022-06-01] MEDS ORDERED: SUBLIMAZE 250 MCG/5 ML ONE (17:16)
[2022-06-01] MEDS ORDERED: Zemuron 100 MG/10 ML ONE ×2 (17:16→18:21)
[2022-06-01] MEDS ORDERED: DIPRIVAN 200 MG/20 ML IV ONE (17:16)
[2022-06-01] MEDS ORDERED: Versed 2 MG/2 ML Injection ONE (17:16)
[2022-06-01] MEDS ORDERED: BRIDION 200MG/2ML IV ONE (18:52)
[2022-06-01] MEDS ORDERED: TORAdol 30 mg Injection ONE (19:28)
[2022-06-01] MEDS ORDERED: SUBLIMAZE 100 MCG/2 ML ONE (19:40)
[2022-06-01] MEDS ORDERED: NORCO 5/325 MG PO PRN (20:09)
[2022-06-01] MEDS: MORPHINE SULFATE 4 MG INJ IV PRN (20:57)
[2022-06-01] MEDS: Lactated Ringers 1,000 ML IV SCH (21:22)
[2022-06-02] MEDS: MORPHINE SULFATE 4 MG INJ IV PRN (00:11)
[2022-06-02] MEDS: CLINDAMYCIN-D5W 600 MG/50 ML*** 600 MG/50 ML BAG IV SCH ×2 (05:14→10:34)
[2022-06-02 07:41] LABS: Absolute Neutrophil Ct (ANC) 6.75 x10^3/uL (1.4-6.9); Basophil (Absolute #) 0.02 x10^3/uL (0-0.4); Eosinophil % 0.7 % (0.00-5.0); Eosinophil (Absolute #) 0.06 x10^3/uL (0-0.5); Hematocrit 37.8 % (35-47); Hemoglobin 11.4 g/dL (12.0-16.0); Lymphocytes % 17.4 % (24.0-44.0); Mean Cell Volume 90.4 fL (78-100); Mean Corpuscular Hemoglobin 27.3 pg (26-32); Mean Corpuscular Hgb Concent. 30.2 g/dL (32-36); Mean Platelet Volume 9.2 fL (7.5-11.0); Monocyte (Absolute #) 0.72 x10^3/uL (0.0-1.3); Monocytes % 7.8 % (0.0-12.0); Neutrophil % 73.5 % (36.0-66.0); Platelet Count 329 x10^3/uL (150-450); Red Blood Count 4.18 x10^6/uL (4.1-5.4); Red Cell Distribution Width 13.5 % (11.5-14.0); White Blood Count 9.2 x10^3/uL (4.0-10.5)
[2022-06-02 08:32] VITALS: BP 123/70; PULSE 76; O2SAT 93
--- NOTE | 2022-06-02 08:39 | HP ---
ADMISSION DATE: 05/31/2022 HISTORY OF PRESENT ILLNESS: 31 year-old female with epigastric and right upper quadrant pain associated with nausea and vomiting. CT scan showed multiple gallstones. Liver function tests were okay. Lipase was actually okay. However, there was questionable stranding around the pancreas. PAST MEDICAL HISTORY: She is insulin resistant. She is overweight. No chest pain or palpitations. CURRENT MEDICATIONS: Include Paxil and Ozempic. ALLERGIES: PENICILLIN, AMOXICILLIN, AND SULFA. SHE HAS TOLERATED KEFLEX IN THE PAST. PAST SURGICAL HISTORY: She denied any abdominal surgery in the past. FAMILY HISTORY: Cancer. SOCIAL HISTORY: pack per day smoker. Denies alcohol abuse. REVIEW OF SYSTEMS: Otherwise, 14 systems reviewed negative or noncontributory other than above and per preadmission questionnaire. PHYSICAL EXAMINATION: GENERAL: No acute distress. HEENT: Sclerae nonicteric. NECK: No JVD. CHEST: Equal excursion. Nonlabored breathing. CVS: Regular rhythm pulse. ABDOMEN: Soft. Some tenderness in epigastrium a little bit towards the right upper quadrant. EXTREMITIES: No cyanosis. NEURO: Alert, moving extremities symmetrically. PSYCH: Normal mood and affect. IMPRESSION: ACUTE EXACERBATION OF CHRONIC CHOLECYSTITIS/CHOLELITHIASIS. [place] the patient would benefit from cholecystectomy. Risks and benefits including, but not limited to, bleeding; infection; risk of trocar injury or hernia; risk of bowel, bladder, or blood vessel injury; risk of bile leak, bile duct injury, or retained stone or sludge possibly requiring further procedure either open or endoscopic retrograde cholangiopancreatography; general risk of anesthesia, deep vein thrombosis, pulmonary embolism, or pneumonia; perioperative risks of aches, pains, bloating, constipation and/or loose stools possibly chronic in nature; possibility that this procedure may not improve the patient's symptoms and she may need further work-up and/or endoscopy or other studies or procedures. She understands and agrees to the planned procedure. Will proceed with laparoscopic cholecystectomy, possible open when OR time available.
[2022-06-02] MEDS: Lactated Ringers 1,000 ML IV SCH (09:32)
--- NOTE | 2022-06-02 10:20 | PCM.DS ---
Discharge Summary Date of Admission: 05/31/22 23:59 Admitting Physician: EMILY PORTILLO Consults: Consults on Case 06/01/22 00:01 Consult Surgery ROUTINE Primary Care Provider: EMILY PORTILLO Allergies Allergies Penicillins Allergy (Mild, Verified 05/11/13 04:16) amoxicillin Allergy (Verified 05/31/22 20:32) Sulfa (Sulfonamide Antibiotics) Allergy (Verified 05/31/22 20:32) Hospital Summary - Hospital Course Hospital Course: Pt is 31 yo female admitted through ER with abd pain, had pancreatitis on CT (pancreatic stranding) with nl lipase, and gallbladder with multiple stones. No U/s evidence of cholecystitis. Her liver #s were nl. WBC elevated to 13.1 initially, 16.6 the next morning so was started on IV clindamycin. Dr. Tapia did a cholecystectomy, thank you. She is feeling better today, having some postoperative pain that she describes as manageable. Had not passed flatus when I saw her this morning but did feel that it was imminent. Tolerated liquids. Was up walking in the sharp prior to my exam. WBC nl this morning. Will be discharged to home, f/u with DR. Tapia as directed. - Vitals & Intake/Output Vital Signs: Vital Signs Temperature 97.6 F 06/02/22 07:00 Pulse Rate 76 06/02/22 07:00 Respiratory Rate 19 06/02/22 07:00 Blood Pressure 123/70 06/02/22 07:00 O2 Sat by Pulse Oximetry 93 L 06/02/22 07:00 Intake & Output: Intake & Output 05/30/22 05/31/22 06/01/22 06/02/22 11:59 11:59 11:59 11:59 Intake Total 0 1679 Output Total 2850 Balance 0 -1171 Weight 97 kg 97 kg - Lab Result Diagrams: 06/02/22 07:30 06/01/22 04:58 Lab Results-Last 24 Hrs: Lab Results-Last 24 Hours 06/02/22 Range/Units 07:30 WBC 9.2 (4.0-10.5) x10^3/uL RBC 4.18 (4.1-5.4) x10^6/uL Hgb 11.4 L (12.0-16.0) g/dL Hct 37.8 (35-47) % MCV 90.4 (78-100) fL MCH 27.3 (26-32) pg MCHC 30.2 L (32-36) g/dL RDW 13.5 (11.5-14.0) % Plt Count 329 (150-450) x10^3/uL MPV 9.2 (7.5-11.0) fL Gran % 73.5 H (36.0-66.0) % Immature Gran % (Auto) 0.4 (0.00-0.4) % Nucleat RBC Rel Count 0.0 (0.00-0.1) % Eos # (Auto) 0.06 (0-0.5) x10^3/uL Immature Gran # (Auto) 0.04 H (0.00-0.03) x10^3u/L Absolute Lymphs (auto) 1.60 (1.0-4.6) x10^3/uL Absolute Monos (auto) 0.72 (0.0-1.3) x10^3/uL Absolute Nucleated RBC 0.00 (0.00-0.01) x10^3u/L Lymphocytes % 17.4 L (24.0-44.0) % Monocytes % 7.8 (0.0-12.0) % Eosinophils % 0.7 (0.00-5.0) % Basophils % 0.2 (0.0-0.4) % Absolute Granulocytes 6.75 (1.4-6.9) x10^3/uL Basophils # 0.02 (0-0.4) x10^3/uL - Radiology Exams Ordered Rad Exams-Entire Visit: Radiology Procedures Category Date Time Status ABDOMEN AND PELVIS W/0 CONTRAS [CT] Stat Exams 05/31/22 20:40 Completed GALLBLADDER [US] Stat Exams 05/31/22 22:48 Completed - Procedures and Test Procedures and Tests throughout Hospitalization: Therapy Orders & Screens 06/01/22 23:41 Oxygen Nasal Cannula 2 lpm Comment: Diagnosis: Pancreatitis, cholelithiasis Discharge Exam General Appearance: no apparent distress, alert, obese Neurologic Exam: oriented x 3, cooperative, normal mood/affect Eye Exam: eyes nml inspection Ears, Nose, Throat Exam: moist mucous membranes Neck Exam: normal inspection Respiratory Exam: normal breath sounds, lungs clear, No crackles/rales, No rhonchi, No wheezing Cardiovascular Exam: regular rate/rhythm, normal heart sounds, No murmur Gastrointestinal/Abdomen Exam: soft, other (post op wounds covered with bandaids; all clean/dry), No normal bowel sounds (diminished but present) Extremity Exam: No pedal edema, No swelling Skin Exam: normal color, warm, dry, No rash Final Diagnosis/Problem List - Final Discharge Diagnosis/Problem (1) S/P cholecystectomy Current Visit: Yes Status: Acute Assessment & Plan: Doing great, home today. Code(s): Z90.49 - ACQUIRED ABSENCE OF OTHER SPECIFIED PARTS OF DIGESTIVE TRACT (2) Cholelithiasis Current Visit: Yes Status: Resolved (3) Epigastric pain Current Visit: Yes Status: Resolved Code(s): R10.13 - EPIGASTRIC PAIN (4) Gallstone pancreatitis Current Visit: Yes Status: Resolved Code(s): K85.10 - BILIARY ACUTE PANCREATITIS WITHOUT NECROSIS OR INFECTION (5) Leukocytosis Current Visit: Yes Status: Resolved Code(s): D72.829 - ELEVATED WHITE BLOOD CELL COUNT, UNSPECIFIED - Discharge Disposition: Home, Self-Care Condition: Stable Prescriptions: New Hydrocodone/Acetaminophen [Hydrocodone-Acetamin 5-325 mg] 1 tab PO Q4HPRN PRN 5 Days #22 tablet MDD 6 PRN Reason: Pain Continue Semaglutide [Ozempic] 1 mg SQ WEEKLY Paroxetine HCl 20 mg [Paxil 20 MG] 20 mg PO DAILY Instructions: Pancreatitis (DC), Cholecystectomy (DC) Follow up with: SHERRI CARLOS [COURTESY STAFF] - 06/06/22 8:25 am EMILY PORTILLO [Primary Care Provider] - 06/16/22 11:15 am Forms: Discharge Instructions
[2022-06-02 10:36] LABS: ALKALINE PHOSPHATASE 42 U/L (38-126); ANION GAP 10.2 MEQ/L (5-15); BLOOD UREA NITROGEN 7 mg/dL (7-17); CHLORIDE 103 mmol/L (98-107); Calcium 9.1 mg/dL (8.4-10.2); Carbon Dioxide 28 mmol/L (22-30); Creatinine 1 0.81 mg/dL (0.52-1.04); EST GLOMERULAR FILTRATION RATE > 60.0 ML/MIN; Glucose 100 mg/dL (74-106); LIPASE 280 U/L (23-300); Potassium 4.5 mmol/L (3.5-5.1); SGOT/AST 25 U/L (14-36); SGPT/ALT 18 U/L (0-35); SODIUM 137 mmol/L (137-145); Total Protein 6.9 g/dL (6.3-8.2)
--- NOTE | 2022-06-02 15:23 | OP ---
SURGERY DATE: 06/01/2022 SURGERY TIME: 1800 PREOPERATIVE DIAGNOSIS: 1. ACUTE EXACERBATION OF CHRONIC CHOLECYSTITIS, SYMPTOMATIC CHOLELITHIASIS. POSTOPERATIVE DIAGNOSIS: 1. ACUTE EXACERBATION OF CHRONIC CHOLECYSTITIS, SYMPTOMATIC CHOLELITHIASIS. PROCEDURE: 1. Laparoscopic cholecystectomy. SURGEON: Dr. Jeyson Duncan. ANESTHESIA: General. ESTIMATED BLOOD LOSS: Minimal. INDICATIONS: As noted above. Risks and benefits explained in detail, but not limited to. Consent obtained. She is only having epigastric and right upper quadrant pain. She was not having lower abdominal pain. She had a 7 or 8 mm appendix on the CT scan, but no inflammatory changes. Risks and benefits explained in detail, but not limited to as per the consult. Discussed preoperatively. DESCRIPTION OF PROCEDURE AND FINDINGS: The patient was taken to the OR. General anesthesia was induced. The abdomen was prepped and draped in the usual sterile fashion. After official time-out, no disagreement in planned procedure. Transverse incision made at the supraumbilical area. Fascia grasped and pulled upward. Veress needle inserted. Tested with saline. Pneumoperitoneum accomplished insufflating from an opening pressure of 0-15. 5 mm bladeless port and camera inserted without difficulty followed by two 5 mm right upper quadrant ports and 11 or 12 mm epigastric port. There was no evidence of any intraabdominal injury secondary to trocar insertion. There were no signs of any inflammatory changes in the right lower quadrant. It was felt given her gallbladder symptoms, she does not warrant an appendectomy at this point. Whether she has appendicitis down the road is a possibility, but it is not felt, given her gallbladder, to need to come out as it is where her symptoms were it was felt she did not warrant the appendectomy at this stage. The gallbladder was grasped. It was a little bit edematous. Dissected posterolateral to anterior fashion. Cystic duct/infundibular junction slowly, carefully well skeletonized so the critical view was obtained both anteriorly and posteriorly. Once this was accomplished, cystic duct/cystic artery clipped X 3 and divided in the usual fashion. The gallbladder was a little bit vascular requiring clipping additional oozing side branches off the cystic artery/cystic vein directly on the gallbladder wall as necessary. It was slowly, carefully dissected free from its dense attachments to the liver bed. Just prior to releasing the anterior edge of the liver attachments, the clips were noted to be in place in the cystic duct/cystic artery stumps. No signs of any active bleeding or bile leakage. [place] there was no benefit from drain placement. The gallbladder was released from its final attachments to the anterior edge of the liver, slowly placed in the sac, pulled up in the epigastric wound. It was necessary to enlarge the fascial defect slightly with the clamp allowing the gallbladder and bag to be pulled free. The gallbladder was opened inside the bag. Multiple moderately large stones carefully retrieved with the [place] finally allowing the gallbladder and bag to be pulled free and passed off. This fascial defect closed with puncture closure device and #1 Vicryl. A copious amount of irrigation irrigating lateral to the liver and subhepatic space irrigating clear. The liver bed was intact. Clips noted to be in place in cystic duct/cystic artery stumps. No signs of any active bleeding or bile leakage. [place] there was no benefit of any drain placement. The fascial defect of the 11 or 12 mm epigastric port was closed with puncture closure device and #1 Vicryl under direct vision of the camera. Again, it was felt she did not warrant any appendectomy at this time. Pneumoperitoneum decompressed. Wounds irrigated out. As I was paged to a level I trauma, the skin was stapled. Findings were discussed with the family out in the waiting area including the fact that because there was an acute trauma, had stapled the skin. I will remove the gissell in the office next week.
== END 2022-06-02 11:29 | disposition home or self-care (01) ==
LOC: ED 20:15 → MED SURG 23:59
PROVIDERS: ADMIT Family Medicine; ATTEND Family Medicine
DX: K80.10 Calculus of gallbladder with chronic cholecystitis without obstruction (principal); K85.10 Biliary acute pancreatitis without necrosis or infection; D72.89 Other specified disorders of white blood cells
CPT/HCPCS: 0241U; 36000; 36415; 47562; 74176; 76705; 80053; 81015; 81025; 83690; 84484; 85025; 93268; 94762; 96360; 96361; 96374; 96375; 99285; G0378; 99140; J1170; J1885; J1956; J2250; J2270; J2405; J2704; J3010; A9270-GY

== ENCOUNTER 2023-06-08 10:17 | Emergency (ER) | payer OTHER ==
--- NOTE | 2023-06-08 10:24 | ERPHSYRPT ---
- History of Present Illness Time Seen by Provider: 06/08/23 10:24 Historian: patient Exam Limitations: no limitations Physician History: This is a 32-year-old white female patient who has a history of recurrent pancreatitis since her cholecystectomy approximately 1 year ago. Her current symptoms began approximately 1 week ago. They have progressively been worsening. She has intermittent nausea in the last week. Her symptoms worsen when she eats. She has pain in the periumbilical and epigastric area. Patient denies chest pain. She denies shortness of breath. Patient is a diabetic and she has a history of anxiety/depression. She is a daily smoker of cigarettes. She denies diarrhea. She denies fever Timing/Duration: week(s) (1) Activities at Onset: none Quality: cramping Abdominal Pain Onset Location: epigastric, periumbilical Pain Radiation: no radiation Severity of Pain-Max: moderate Severity of Pain-Current: moderate Modifying Factors: Improves With: eating (Worsens) Associated Symptoms: loss of appetite, nausea, No chest pain, No diarrhea, No fever/chills, No shortness of breath Previous symptoms: same symptoms as today, no recent treatment Allergies/Adverse Reactions: Penicillins Allergy (Mild, Verified 06/08/23 10:30) amoxicillin Allergy (Verified 06/08/23 10:30) Sulfa (Sulfonamide Antibiotics) Allergy (Verified 06/08/23 10:30) Home Medications: Paroxetine HCl 20 mg [Paxil 20 MG] 20 mg PO DAILY 06/01/22 [History] Metformin HCl 500 mg [Glucophage 500 MG] 1 ea DAILY 06/08/23 [History] Hx Tetanus, Diphtheria Vaccination/Date Given: Yes Hx Influenza Vaccination/Date Given: No Hx Pneumococcal Vaccination/Date Given: No Travel Risk - International Travel Have you traveled outside of the country in past 3 weeks: No - Coronavirus Screening Are you exhibiting any of the following symptoms?: No Close contact with a COVID-19 positive Pt in past 14-21 Days: No - Vaccine Status Have you recieved a Covid-19 vaccination: Yes [employer]: [email or web address] Application - Review of Systems Constitutional: No Symptoms Eyes: No Symptoms Ears, Nose, & Throat: No Symptoms Respiratory: No Symptoms Cardiac: No Symptoms Abdominal/Gastrointestinal: Abdominal Pain, Nausea, Appetite Changes, No Vo miting, No Diarrhea Genitourinary Symptoms: No Symptoms Musculoskeletal: No Symptoms Skin: No Symptoms Neurological: No Symptoms Psychological: No Symptoms Endocrine: No Symptoms Hematologic/Lymphatic: No Symptoms Immunological/Allergic: No Symptoms All Other Systems: Reviewed and Negative - Past Medical History Pertinent Past Medical History: No Neurological History: No Pertinent History ENT History: No Pertinent History Cardiac History: No Pertinent History Respiratory History: No Pertinent History Musculoskeletal History: No Pertinent History GI Medical History: Gallbladder Disease, Pancreatitis History: No Pertinent History Psycho-Social History: Anxiety Female Reproductive Disorders: No Pertinent History Other Medical History: insulin resistant - Past Surgical History Past Surgical History: No - Social History Smoking Status: Current every day smoker Exposure to second hand smoke: No Alcohol Use: None Drug Use: none Patient Lives Alone: No Significant Family History: no pertinent family hx - Nursing Vital Signs Nursing Vital Signs: Initial Vital Signs Blood Pressure 126/84 06/08/23 10:31 O2 Sat by Pulse Oximetry 96 06/08/23 10:31 Pain Scale Pain Intensity 6 - Physical Exam General Appearance: no apparent distress, alert, obese Eye Exam: PERRL/EOMI, eyes nml inspection Ears, Nose, Throat Exam: normal ENT inspection, moist mucous membranes Neck Exam: normal inspection, non-tender, supple, full range of motion Respiratory Exam: normal breath sounds, lungs clear, airway intact, No chest tenderness, No respiratory distress Cardiovascular Exam: regular rate/rhythm, normal heart sounds, normal peripheral pulses Gastrointestinal/Abdomen Exam: soft, normal bowel sounds, tenderness (To palpation in the epigastric and periumbilical region), No guarding Pelvic Exam: not done Rectal Exam: not done Back Exam: normal inspection, normal range of motion, vertebral tenderness, No CVA tenderness Extremity Exam: normal inspection, normal range of motion, pelvis stable Neurologic Exam: alert, oriented x 3, cooperative, account services associate II-XII nml as tested, normal mood/affect, nml cerebellar function, nml station & gait, sensation nml Skin Exam: normal color, warm, dry Lymphatic Exam: No adenopathy SpO2 Interpretation: normal O2 Delivery: Room Air - Course Nursing assessment & vital signs reviewed: Yes Ordered Tests: Active Orders 24 hr Category Date Time Status IV Insertion STAT Care 06/08/23 11:04 Active ABDOMEN AND PELVIS W/0 CONTRAS [CT] Stat Exams 06/08/23 11:04 Completed AMYLASE Stat Lab 06/08/23 11:13 Completed CBC W DIFF Stat Lab 06/08/23 11:13 Completed CMP Stat Lab 06/08/23 11:13 Completed CULTURE,URINE Stat Lab 06/08/23 11:07 Received HCG QUALITATIVE, SERUM Stat Lab 06/08/23 11:13 Completed LIPASE Stat Lab 06/08/23 11:13 Completed UA W/RFX UR CULTURE Stat Lab 06/08/23 11:07 Completed Medication Summary Discontinued Medications Generic Name Dose Route Start Last Admin Trade Name Freq PRN Reason Stop Dose Admin Hydromorphone HCl 1 mg 06/08/23 11:04 06/08/23 11:30 Hydromorphone 1 Mg/1ml Inj IV 06/08/23 11:05 1 mg STAT ONE Administration Hydromorphone HCl Confirm 06/08/23 11:29 Hydromorphone 1 Mg/1ml Inj Administered 06/08/23 11:30 Dose 1 mg .ROUTE .STK-MED ONE Sodium Chloride 1,000 mls @ 999 mls/hr 06/08/23 11:04 06/08/23 11:31 Sodium Chloride 0.9% 1000 Ml IV 06/08/23 12:04 999 mls/hr .Q1H1M STA Administration Sodium Chloride Confirm 06/08/23 11:30 Sodium Chloride 0.9% 1000 Ml Administered 06/08/23 11:31 Dose 1,000 mls @ ud .ROUTE .STK-MED ONE Ondansetron HCl Confirm 06/08/23 10:52 Ondansetron Hcl 4 Mg/2 Ml Vial Administered 06/08/23 10:53 Dose 4 mg .ROUTE .STK-MED ONE Ondansetron HCl 4 mg 06/08/23 11:04 06/08/23 11:29 Ondansetron Hcl 4 Mg/2 Ml Vial IV 06/08/23 11:05 4 mg STAT ONE Administration Lab/Rad Data: Laboratory Result Diagrams 06/08/23 11:13 06/08/23 11:13 Laboratory Results 06/08/23 06/08/23 06/08/23 Range/Units 11:13 11:13 11:13 WBC (4.0-10.5) x10^3/uL RBC (4.1-5.4) x10^6/uL Hgb (12.0-16.0) g/dL Hct (35-47) % MCV (78-100) fL MCH (26-32) pg MCHC (32-36) g/dL RDW (11.5-14.0) % Plt Count (150-450) x10^3/uL MPV (7.5-11.0) fL Gran % (36.0-66.0) % Immature Gran % (Auto) (0.00-0.4) % Nucleat RBC Rel Count (0.00-0.1) % Eos # (Auto) (0-0.5) x10^3/uL Immature Gran # (Auto) (0.00-0.03) x10^3u/L Absolute Lymphs (auto) (1.0-4.6) x10^3/uL Absolute Monos (auto) (0.0-1.3) x10^3/uL Absolute Nucleated RBC (0.00-0.01) x10^3u/L Lymphocytes % (24.0-44.0) % Monocytes % (0.0-12.0) % Eosinophils % (0.00-5.0) % Basophils % (0.0-0.4) % Absolute Granulocytes (1.4-6.9) x10^3/uL Basophils # (0-0.4) x10^3/uL Sodium 141 (137-145) mmol/L Sodium Direct 137 L (138-146) mmol/L Potassium 4.3 4.2 (3.5-5.1) mmol/L Chloride 105 106 (98-107) mmol/L Carbon Dioxide 24 25 (22-30) mmol/L Anion Gap 14.2 (5-15) MEQ/L BUN 9 (7-17) mg/dL Venous BUN 9 (8-26) mg/dL Creatinine 0.8 0.68 (0.52-1.04) mg/dL Estimated GFR > 60.0 ML/MIN Glucose 88 89 (74-106) mg/dL Calcium 9.2 (8.4-10.2) mg/dL Ionized Calcium 1.26 (1.12-1.32) mmol/L Total Bilirubin 0.50 (0.2-1.3) mg/dL AST 29 (14-36) U/L ALT 20 (0-35) U/L Alkaline Phosphatase 47 (38-126) U/L Serum Total Protein 7.2 (6.3-8.2) g/dL Albumin 4.1 (3.5-5.0) g/dL Amylase 60 (30-110) U/L Lipase 47 (23-300) U/L Serum HCG, Qual NEGATIVE (NEGATIVE) Urine Color (Yellow) Urine Appearance (Clear) Urine pH (4.6-8.0) Ur Specific [place] (1.005-1.030) Urine Protein (Negative) Urine Glucose (UA) (Negative) mg/dL Urine Ketones (Negative) Urine Blood (Negative) Urine Nitrite (Negative) Urine Bilirubin (Negative) Urine Urobilinogen (0.2) mg/dL Ur Leukocyte Esterase (Negative) U Hyaline Cast (Auto) (0-2) /LPF Urine Microscopic RBC (0-5) /HPF Urine Microscopic WBC (0-5) /HPF Ur Epithelial Cells (None Seen) /HPF Urine Bacteria (None Seen) /HPF Urine Yeast (Budding) (None Seen) /HPF Urine Culture Reflexed (NO) 06/08/23 06/08/23 Range/Units 11:13 11:07 WBC 10.5 (4.0-10.5) x10^3/uL RBC 4.53 (4.1-5.4) x10^6/uL Hgb 13.5 (12.0-16.0) g/dL Hct 40.7 (35-47) % MCV 89.8 (78-100) fL MCH 29.8 (26-32) pg MCHC 33.2 (32-36) g/dL RDW 12.6 (11.5-14.0) % Plt Count 327 (150-450) x10^3/uL MPV 9.0 (7.5-11.0) fL Gran % 75.6 H (36.0-66.0) % Immature Gran % (Auto) 0.3 (0.00-0.4) % Nucleat RBC Rel Count 0.0 (0.00-0.1) % Eos # (Auto) 0.04 (0-0.5) x10^3/uL Immature Gran # (Auto) 0.03 (0.00-0.03) x10^3u/L Absolute Lymphs (auto) 1.76 (1.0-4.6) x10^3/uL Absolute Monos (auto) 0.70 (0.0-1.3) x10^3/uL Absolute Nucleated RBC 0.00 (0.00-0.01) x10^3u/L Lymphocytes % 16.8 L (24.0-44.0) % Monocytes % 6.7 (0.0-12.0) % Eosinophils % 0.4 (0.00-5.0) % Basophils % 0.2 (0.0-0.4) % Absolute Granulocytes 7.93 H (1.4-6.9) x10^3/uL Basophils # 0.02 (0-0.4) x10^3/uL Sodium (137-145) mmol/L Sodium Direct (138-146) mmol/L Potassium (3.5-5.1) mmol/L Chloride (98-107) mmol/L Carbon Dioxide (22-30) mmol/L Anion Gap (5-15) MEQ/L BUN (7-17) mg/dL Venous BUN (8-26) mg/dL Creatinine (0.52-1.04) mg/dL Estimated GFR ML/MIN Glucose (74-106) mg/dL Calcium (8.4-10.2) mg/dL Ionized Calcium (1.12-1.32) mmol/L Total Bilirubin (0.2-1.3) mg/dL AST (14-36) U/L ALT (0-35) U/L Alkaline Phosphatase (38-126) U/L Serum Total Protein (6.3-8.2) g/dL Albumin (3.5-5.0) g/dL Amylase (30-110) U/L Lipase (23-300) U/L Serum HCG, Qual (NEGATIVE) Urine Color Yellow (Yellow) Urine Appearance Turbid A (Clear) Urine pH 7.5 (4.6-8.0) Ur Specific [place] 1.025 (1.005-1.030) Urine Protein Trace A (Negative) Urine Glucose (UA) Negative (Negative) mg/dL Urine Ketones Negative (Negative) Urine Blood Negative (Negative) Urine Nitrite Negative (Negative) Urine Bilirubin Negative (Negative) Urine Urobilinogen 1.0 A (0.2) mg/dL Ur Leukocyte Esterase Trace A (Negative) U Hyaline Cast (Auto) NONE SEEN (0-2) /LPF Urine Microscopic RBC 0-2 (0-5) /HPF Urine Microscopic WBC 6-10 A (0-5) /HPF Ur Epithelial Cells Many A (None Seen) /HPF Urine Bacteria Many A (None Seen) /HPF Urine Yeast (Budding) (None Seen) /HPF Urine Culture Reflexed YES (NO) - Progress Progress: improved Progress Note: 06/08/23 12:14 This patient medical issues 1 of moderate complexity. Level complexity in the work-up performed is based on review of the patient's past medical history, review of the patient's medication list, review the patient's drug allergy list, history of present illness and physical findings on examination. The work-up in this patient includes placement of intravenous line, infusion of normal saline solution, urinalysis, test, CBC, CMP, amylase and lipase levels. We will also perform a CAT scan of the abdomen pelvis without contrast. We will provide the patient with intravenous Zofran and intravenous Dilaudid for pain and nausea control. 06/08/23 12:46 This patient has a mild urinary tract infection. CT scan of the abdomen pelvis without contrast was interpreted by the radiologist and I reviewed the impression. The patient is small bowel enteritis. Pancreas appears normal. We will provide the patient with a 500 mg Levaquin tablet and 5 mg orally of Flagyl in the emergency department followed by outpatient Cipro 500 mg orally twice a day for 7 days. We will also provide her with a prescription for Zofran 4 mg ODT. 06/08/23 12:48 Counseled pt/family regarding: lab results, diagnosis, need for follow-up, rad results Medical Desision Making - Diagnostic Testing Diagnostic test were ordered, analyzed, and reviewed by me: Yes Radiological Interpretation: Reviewed by me, Teleradiologist Report - Risk of complications The pt has a mod risk of morbidity or mortality based on: Need for prescription drug management - Departure Departure Disposition: Home Clinical Impression: Enteritis, UTI (urinary tract infection) Condition: Stable Critical Care Time: No Referrals: YOUSUF JACKSON, [employer] OPERATOR [Primary Care Provider] - Follow up/PCP as directed Additional Instructions: Drink plenty of fluids. Avoid fatty greasy spicy foods. Follow-up with your primary care provider today, 06/08/2023, for further evaluation management including pain control. Prescriptions: Ondansetron ODT 4 MG [Zofran Odt 4 mg] 4 mg PO Q6H PRN PRN #10 tablet PRN Reason: Vomiting Ciprofloxacin [Cipro 500 MG] 500 mg PO BID #14 tablet Metronidazole 500 mg [Flagyl 500 MG] 500 mg PO TID #21 tablet
[2023-06-08 10:33] VITALS: TEMP 97.2
[2023-06-08] MEDS ORDERED: Zofran 4 MG/2 ML VIAL ONE (10:52)
[2023-06-08] MEDS ORDERED: Hydromorphone 1 mg/ml Injection IV ONE ×2 (11:04→12:53)
[2023-06-08] MEDS ORDERED: Sodium Chloride 0.9% 1000 ML 1,000 ML IV STA (11:04)
[2023-06-08] MEDS ORDERED: Zofran 4 MG/2 ML VIAL IV ONE (11:04)
[2023-06-08 11:16] LABS: Absolute Neutrophil Ct (ANC) 7.93 x10^3/uL (1.4-6.9); BASOPHIL % 0.2 % (0.0-0.4); Basophil (Absolute #) 0.02 x10^3/uL (0-0.4); Eosinophil % 0.4 % (0.00-5.0); Eosinophil (Absolute #) 0.04 x10^3/uL (0-0.5); Hematocrit 40.7 % (35-47); Hemoglobin 13.5 g/dL (12.0-16.0); IMMATURE GRAN # 0.03 x10^3u/L (0.00-0.03); IMMATURE GRAN % 0.3 % (0.00-0.4); Lymphocyte (Absolute #) 1.76 x10^3/uL (1.0-4.6); Lymphocytes % 16.8 % (24.0-44.0); Mean Cell Volume 89.8 fL (78-100); Mean Corpuscular Hemoglobin 29.8 pg (26-32); Mean Corpuscular Hgb Concent. 33.2 g/dL (32-36); Monocytes % 6.7 % (0.0-12.0); Neutrophil % 75.6 % (36.0-66.0); Platelet Count 327 x10^3/uL (150-450); Red Blood Count 4.53 x10^6/uL (4.1-5.4); Red Cell Distribution Width 12.6 % (11.5-14.0); White Blood Count 10.5 x10^3/uL (4.0-10.5)
[2023-06-08 11:18] LABS: HCG SERUM TEST NEGATIVE (NEGATIVE)
[2023-06-08] MEDS ORDERED: Hydromorphone 1 mg/ml Injection ONE ×2 (11:29→13:01)
[2023-06-08] MEDS ORDERED: Sodium Chloride 0.9% 1000 ML 1,000 ML ONE (11:30)
[2023-06-08 11:31] LABS: ISTAT CREA 0.8 mg/dL (0.6-1.3); ISTAT K 4.3 mmol/L (3.5-4.9); ISTAT iCA 1.26 mmol/L (1.12-1.32)
[2023-06-08 11:38] LABS: Appearance Turbid (Clear); Bacteria Many /HPF (None Seen); Bilirubin Negative (Negative); Blood Negative (Negative); Epithelial Cells Many /HPF (None Seen); Glucose, Urine Negative (Negative); Hyaline Casts NONE SEEN /LPF (0-2); Ketones Negative (Negative); Leukocyte Esterase Trace (Negative); Nitrite Negative (Negative); Ph 7.5 (4.6-8.0); Protein,Urine Dip Trace (Negative); RBC 0-2 /HPF (0-5); Specific Gravity 1.025 (1.005-1.030)
[2023-06-08 11:39] LABS: ADD URINE CULTURE? YES (NO)
--- NOTE | 2023-06-08 11:53 | XRAY ---
Indication: Abdomen pain. Multiple contiguous images obtained through the abdomen and pelvis without contrast. Comparison: May 31, 2022 Lung bases clear. Heart not enlarged. Stomach is distended with food/fluid. Noncontrasted stomach and bowel loops are nonobstructed with normal appendix. Several small bowel loops are now mildly fluid distended with mild wall thickening favoring enteritis. Interval cholecystectomy. No free fluid/air. Remaining liver, pancreas, spleen, adrenal glands, kidneys, ureters, bladder, uterus, and aorta are unremarkable for noncontrast exam. Osseous structures intact. Impression: 1. New CT findings favor mild small bowel enteritis 2. Remaining CT abdomen/pelvis without contrast exam is negative.
[2023-06-08 12:09] VITALS: PULSE 72; RESP 16
[2023-06-08 12:39] LABS: ALBUMIN 4.1 g/dL (3.5-5.0); ALKALINE PHOSPHATASE 47 U/L (38-126); AMYLASE 60 U/L (30-110); ANION GAP 14.2 MEQ/L (5-15); BLOOD UREA NITROGEN 9 mg/dL (7-17); CHLORIDE 106 mmol/L (98-107); Calcium 9.2 mg/dL (8.4-10.2); Carbon Dioxide 25 mmol/L (22-30); Creatinine 1 0.68 mg/dL (0.52-1.04); EST GLOMERULAR FILTRATION RATE > 60.0 ML/MIN; Glucose 89 mg/dL (74-106); LIPASE 47 U/L (23-300); Potassium 4.2 mmol/L (3.5-5.1); SGOT/AST 29 U/L (14-36); SGPT/ALT 20 U/L (0-35); SODIUM 141 mmol/L (137-145); Total Protein 7.2 g/dL (6.3-8.2)
[2023-06-08] MEDS ORDERED: Flagyl 500 MG PO ONE (12:52)
[2023-06-08] MEDS ORDERED: Levofloxacin 500 MG Tablet PO ONE (12:52)
[2023-06-08] MEDS ORDERED: Levofloxacin 500 MG Tablet ONE (13:00)
[2023-06-08] MEDS ORDERED: Flagyl 500 MG ONE (13:01)
[2023-06-08 13:33] VITALS: BP 123/70; O2SAT 94
== END 2023-06-08 13:36 | disposition home or self-care (01) ==
LOC: ED 10:17
DX: N39.0 Urinary tract infection, site not specified (principal); K52.9 Noninfective gastroenteritis and colitis, unspecified; R10.33 Periumbilical pain; R10.13 Epigastric pain; R11.0 Nausea; E11.9 Type 2 diabetes mellitus without complications; Z79.84 Long term (current) use of oral hypoglycemic drugs; Z79.899 Other long term (current) drug therapy
CPT/HCPCS: 36000; 36415; 74176; 80047; 80053; 81001; 82150; 83690; 84703; 85025; 87086; 96374; 96375; 96376; 99284; J1170; J2405; A9270-GY

== ENCOUNTER 2025-05-01 19:19 | Emergency (ER) | payer OTHER ==
[2025-05-01] MEDS ORDERED: Zofran 4 MG/2 ML VIAL ONE (19:53)
[2025-05-01] MEDS ORDERED: TORAdol 30 mg Injection ONE (19:53)
[2025-05-01] MEDS ORDERED: TYLENOL 325 MG ONE (19:54)
[2025-05-01] MEDS: Zofran 4 MG/2 ML VIAL IV ONE (19:59)
[2025-05-01] MEDS: TORAdol 30 mg Injection IV ONE (20:00)
[2025-05-01] MEDS: TYLENOL 325 MG PO ONE (20:00)
[2025-05-01 20:07] LABS: BASOPHIL % 0.3 % (0.1-1.2); Basophil (Absolute #) 0.03 x10^3/uL (0.01-0.08); Eosinophil (Absolute #) 0.06 x10^3/uL (0.04-0.36); Hematocrit 38.3 % (34.1-44.9); Hemoglobin 12.6 g/dL (11.2-15.7); IMMATURE GRAN # 0.03 x10^3u/L (0.001-0.031); IMMATURE GRAN % 0.3 % (0.001-0.429); Lymphocyte (Absolute #) 1.20 x10^3/uL (1.18-3.74); Mean Corpuscular Hemoglobin 29.7 pg (25.6-32.2); Mean Corpuscular Hgb Concent. 32.9 g/dL (32.2-35.5); Monocyte (Absolute #) 0.80 x10^3/uL (0.24-0.86); NUCLEATED RBC # 0.00 x10^3u/L (0.00-0.012); NUCLEATED RBC % 0.0 % (0.00-0.2); Platelet Count 332 x10^3/uL (182-369); Red Blood Count 4.24 x10^6/uL (3.93-5.22); White Blood Count 8.8 x10^3/uL (3.98-10.04)
[2025-05-01 20:19] LABS: HCG SERUM TEST NEGATIVE (NEGATIVE)
[2025-05-01 20:20] LABS: Calcium 9.3 mg/dL (8.4-10.2); Carbon Dioxide 23.0 mmol/L (22-30); Creatinine 1 0.69 mg/dL (0.52-1.04); EST GLOMERULAR FILTRATION RATE 116.0 ML/MIN; Glucose 170.0 mg/dL (74-106); Potassium 4.0 mmol/L (3.5-5.1); SGOT/AST 48.0 U/L (14-36); SGPT/ALT 56.0 U/L (0-35); Total Protein 7.6 g/dL (6.3-8.2)
--- NOTE | 2025-05-01 20:36 | ERPHSYRPT ---
- History of Present Illness Time Seen by Provider: 05/01/25 19:21 Historian: patient Exam Limitations: no limitations Patient Subjective Stated Complaint: Fever Triage Nursing Assessment: Patient ambulated back to ED and transferred self to bed. Patient A+O x 3. Patient's skin flushed, warm and dry. Patient complains of fever as high as 102.3 as of yesterday, bodyaches, fatigue and left sided flank pain 7/10. Patient was seen at today with a UA done, which was negative and patient was given a steroid shot. Patient denies cough or sob. Physician History: 34-year-old female presented in the ER with complaints of flulike symptoms with aches and pains all over, headache, fever with a Tmax of 102.5 yesterday. Patient has been taking [id number] pain medication with symptomatic relief. Patient also reports left-sided flank pain with no history of kidney stones. Denies any urinary symptoms. No known sick contact. Denies any chest pain, cough difficulty breathing, URI symptoms. Allergies/Adverse Reactions: amoxicillin Allergy (Verified 05/01/25 19:33) Penicillins Allergy (Verified 05/01/25 19:33) Sulfa (Sulfonamide Antibiotics) Allergy (Verified 05/01/25 19:33) Hx Influenza Vaccination/Date Given: Yes Hx Pneumococcal Vaccination/Date Given: No Immunizations Up to Date: Yes Travel Risk - International Travel Have you traveled outside of the country in past 3 weeks: No - Emerging Infectious Disease Are you exhibiting symptoms associated with any current EIDs: No - Review of Systems Constitutional: Fever, Chills, Fatigue, Weakness Eyes: No Symptoms Ears, Nose, & Throat: No Symptoms Respiratory: No Symptoms Cardiac: No Symptoms Abdominal/Gastrointestinal: Nausea Genitourinary Symptoms: Flank Pain Musculoskeletal: Myalgias Skin: No Symptoms Neurological: Headache Psychological: No Symptoms Endocrine: No Symptoms - Past Medical History Pertinent Past Medical History: Yes Neurological History: No Pertinent History ENT History: No Pertinent History Cardiac History: High Cholesterol Respiratory History: No Pertinent History Endocrine Medical History: Other Musculoskeletal History: No Pertinent History GI Medical History: No Pertinent History History: No Pertinent History Psycho-Social History: No Pertinent History Female Reproductive Disorders: No Pertinent History Other Medical History: Metabolic disorder - Past Surgical History Past Surgical History: Yes Neuro Surgical History: No Pertinent History Cardiac: No Pertinent History Respiratory: No Pertinent History Gastrointestinal: Cholecystectomy Genitourinary: No Pertinent History Musculoskeletal: No Pertinent History Female Surgical History: No Pertinent History - Female History Hx Last Menstrual Period: 6 weeks ago/nuvaring Hx Now: (unkn) - Social History Smoking Status: Never smoker Exposure to second hand smoke: No Drug Use: none - Social Determinants of Health Will the patient participate in the screening: Yes Do you worry about a steady place to live?: No Do you have any problems with any of the following?: No known problems In the past 12 months,have you had to go without utilities?: No Transportation Issues: No Has anyone in your support network made you feel unsafe?: No Have you or anyone in your house had to go w/o enough food: No - Nursing Vital Signs Nursing Vital Signs: Initial Vital Signs Temperature 99.5 F 05/01/25 19:35 Pulse Rate 118 H 05/01/25 19:35 Respiratory Rate 20 05/01/25 19:35 Blood Pressure 140/101 05/01/25 19:35 O2 Sat by Pulse Oximetry 95 05/01/25 19:35 Pain Scale Pain Intensity 0 - Physical Exam General Appearance: no apparent distress Eye Exam: PERRL/EOMI Ears, Nose, Throat Exam: normal ENT inspection Neck Exam: normal inspection, non-tender, supple, full range of motion Respiratory Exam: normal breath sounds, lungs clear Cardiovascular Exam: normal heart sounds, tachycardia Gastrointestinal/Abdomen Exam: soft, normal bowel sounds, tenderness (Left flank with positive CVA tenderness) Back Exam: normal range of motion, CVA tenderness Extremity Exam: normal inspection, normal range of motion, pelvis stable Neurologic Exam: alert, oriented x 3, cooperative Skin Exam: normal color SpO2 Interpretation: normal SpO2: 95 O2 Delivery: Room Air Ordered Tests: Active Orders 24 hr Category Date Time Status IV Insertion STAT Care 05/01/25 19:48 Completed ABDOMEN AND PELVIS W/0 CONTRAS [CT] Stat Exams 05/01/25 20:30 Taken BLOOD CULTURE Stat Lab 05/01/25 19:49 Received CBC W DIFF Stat Lab 05/01/25 19:55 Completed CMP Stat Lab 05/01/25 19:55 Completed CULTURE,URINE Stat Lab 05/01/25 19:55 Received HCG QUALITATIVE, SERUM Stat Lab 05/01/25 19:55 Completed LIPASE Stat Lab 05/01/25 19:55 Completed Lactic Acid Stat Lab 05/01/25 20:00 Completed UA W/RFX UR CULTURE Stat Lab 05/01/25 19:55 Completed Medication Summary Discontinued Medications Generic Name Dose Route Start Last Admin Trade Name Clair PRN Reason Stop Dose Admin Acetaminophen 975 mg 05/01/25 19:48 05/01/25 20:00 Acetaminophen 325 Mg Tablet PO 05/01/25 19:49 975 mg STAT ONE Administration Acetaminophen Confirm 05/01/25 19:54 Acetaminophen 325 Mg Tablet Administered 05/01/25 19:55 Dose 975 mg .ROUTE .STK-MED ONE Cefdinir 300 mg 05/01/25 22:08 05/01/25 22:25 Cefdinir 300 Mg Capsule PO 05/01/25 22:09 300 mg ONCE STA Administration Doxycycline Hyclate 100 mg 05/01/25 22:08 05/01/25 22:25 Doxycycline Hyclate 100 Mg Tablet PO 05/01/25 22:09 100 mg STAT ONE Administration Doxycycline Hyclate Confirm 05/01/25 22:15 Doxycycline Hyclate 100 Mg Tablet Administered 05/01/25 22:16 Dose 100 mg .ROUTE .STK-MED ONE Sodium Chloride 1,000 mls @ 999 mls/hr 05/01/25 19:48 05/01/25 21:24 Sodium Chloride 0.9% 1000 Ml IV 05/01/25 20:48 Infused .Q1H1M STA Infusion Sodium Chloride Confirm 05/01/25 19:54 Sodium Chloride 0.9% 1000 Ml Administered 05/01/25 19:55 Dose 1,000 mls @ ud .ROUTE .STK-MED ONE Ketorolac Tromethamine 30 mg 05/01/25 19:48 05/01/25 20:00 Ketorolac Tromethamine 30 Mg/Ml Inj IV 05/01/25 19:49 30 mg STAT ONE Administration Ketorolac Tromethamine Confirm 05/01/25 19:53 Ketorolac Tromethamine 30 Mg/Ml Inj Administered 05/01/25 19:54 Dose 30 mg .ROUTE .STK-MED ONE Ondansetron HCl 4 mg 05/01/25 19:48 05/01/25 19:59 Ondansetron Hcl 4 Mg/2 Ml Vial IV 05/01/25 19:49 4 mg STAT ONE Administration Ondansetron HCl Confirm 05/01/25 19:53 Ondansetron Hcl 4 Mg/2 Ml Vial Administered 05/01/25 19:54 Dose 4 mg .ROUTE .[facility]-MED ONE Lab/Rad Data: Laboratory Result Diagrams 05/01/25 19:55 05/01/25 19:55 Laboratory Results 05/01/25 05/01/25 05/01/25 Range/Units 20:00 19:55 19:55 WBC (3.98-10.04) x10^3/uL RBC (3.93-5.22) x10^6/uL Hgb (11.2-15.7) g/dL Hct (34.1-44.9) % MCV (79.4-94.8) fL MCH (25.6-32.2) pg MCHC (32.2-35.5) g/dL RDW (11.7-14.4) % Plt Count (182-369) x10^3/uL MPV (9.4-12.3) fL Gran % (34.0-71.1) % Immature Gran % (Auto) (0.001-0.429) % Nucleat RBC Rel Count (0.00-0.2) % Eos # (Auto) (0.04-0.36) x10^3/uL Immature Gran # (Auto) (0.001-0.031) x10^3u/L Absolute Lymphs (auto) (1.18-3.74) x10^3/uL Absolute Monos (auto) (0.24-0.86) x10^3/uL Absolute Nucleated RBC (0.00-0.012) x10^3u/L Lymphocytes % (19.3-51.7) % Monocytes % (4.7-12.5) % Eosinophils % (0.7-5.8) % Basophils % (0.1-1.2) % Absolute Granulocytes (1.56-6.13) x10^3/uL Basophils # (0.01-0.08) x10^3/uL Sodium (135-145) mmol/L Potassium (3.5-5.1) mmol/L Chloride (98-107) mmol/L Carbon Dioxide (22-30) mmol/L Anion Gap (5-15) MEQ/L BUN (7-17) mg/dL Creatinine (0.52-1.04) mg/dL Estimated GFR ML/MIN Glucose (74-106) mg/dL Lactic Acid 2.0 (0.4-2.0) Calcium (8.4-10.2) mg/dL Total Bilirubin (0.2-1.3) mg/dL AST (14-36) U/L ALT (0-35) U/L Alkaline Phosphatase (38-126) U/L Serum Total Protein (6.3-8.2) g/dL Albumin (3.5-5.0) g/dL Lipase (23-300) U/L Serum HCG, Qual NEGATIVE (NEGATIVE) Urine Color (Yellow) Urine Appearance (Clear) Urine pH (4.6-8.0) Ur Specific Stollings (1.005-1.030) Urine Protein (Negative) Urine Glucose (UA) (Negative) mg/dL Urine Ketones (Negative) Urine Blood (Negative) Urine Nitrite (Negative) Urine Bilirubin (Negative) Urine Urobilinogen (0.2) mg/dL Ur Leukocyte Esterase (Negative) U Hyaline Cast (Auto) (0-2) /LPF Urine Microscopic RBC (0-5) /HPF Urine Microscopic WBC (0-5) /HPF Ur Epithelial Cells (None Seen) /HPF Urine Bacteria (None Seen) /HPF Urine Culture Reflexed (NO) Influenza Type A Ag NEGATIVE (NEGATIVE) Influenza Type B Ag NEGATIVE (NEGATIVE) RSV (PCR) NEGATIVE (NEGATIVE) SARS-CoV-2 (PCR) NEGATIVE (NEGATIVE) 05/01/25 05/01/25 05/01/25 Range/Units 19:55 19:55 19:55 WBC 8.8 (3.98-10.04) x10^3/uL RBC 4.24 (3.93-5.22) x10^6/uL Hgb 12.6 (11.2-15.7) g/dL Hct 38.3 (34.1-44.9) % MCV 90.3 (79.4-94.8) fL MCH 29.7 (25.6-32.2) pg MCHC 32.9 (32.2-35.5) g/dL RDW 13.2 (11.7-14.4) % Plt Count 332 (182-369) x10^3/uL MPV 9.1 L (9.4-12.3) fL Gran % 76.0 H (34.0-71.1) % Immature Gran % (Auto) 0.3 (0.001-0.429) % Nucleat RBC Rel Count 0.0 (0.00-0.2) % Eos # (Auto) 0.06 (0.04-0.36) x10^3/uL Immature Gran # (Auto) 0.03 (0.001-0.031) x10^3u/L Absolute Lymphs (auto) 1.20 (1.18-3.74) x10^3/uL Absolute Monos (auto) 0.80 (0.24-0.86) x10^3/uL Absolute Nucleated RBC 0.00 (0.00-0.012) x10^3u/L Lymphocytes % 13.6 L (19.3-51.7) % Monocytes % 9.1 (4.7-12.5) % Eosinophils % 0.7 (0.7-5.8) % Basophils % 0.3 (0.1-1.2) % Absolute Granulocytes 6.70 H (1.56-6.13) x10^3/uL Basophils # 0.03 (0.01-0.08) x10^3/uL Sodium 136 (135-145) mmol/L Potassium 4.0 (3.5-5.1) mmol/L Chloride 103 (98-107) mmol/L Carbon Dioxide 23 (22-30) mmol/L Anion Gap 14.3 (5-15) MEQ/L BUN 8 (7-17) mg/dL Creatinine 0.69 (0.52-1.04) mg/dL Estimated GFR 116.0 ML/MIN Glucose 170 H (74-106) mg/dL Lactic Acid (0.4-2.0) Calcium 9.3 (8.4-10.2) mg/dL Total Bilirubin 0.50 (0.2-1.3) mg/dL AST 48 H (14-36) U/L ALT 56 H (0-35) U/L Alkaline Phosphatase 44 (38-126) U/L Serum Total Protein 7.6 (6.3-8.2) g/dL Albumin 4.2 (3.5-5.0) g/dL Lipase 47 (23-300) U/L Serum HCG, Qual (NEGATIVE) Urine Color Yellow (Yellow) Urine Appearance Cloudy A (Clear) Urine pH 7.5 (4.6-8.0) Ur Specific Stollings 1.025 (1.005-1.030) Urine Protein Trace A (Negative) Urine Glucose (UA) Negative (Negative) mg/dL Urine Ketones Trace A (Negative) Urine Blood Negative (Negative) Urine Nitrite Negative (Negative) Urine Bilirubin Negative (Negative) Urine Urobilinogen 1.0 A (0.2) mg/dL Ur Leukocyte Esterase Negative (Negative) U Hyaline Cast (Auto) NONE SEEN (0-2) /LPF Urine Microscopic RBC 0-2 (0-5) /HPF Urine Microscopic WBC 0-2 (0-5) /HPF Ur Epithelial Cells Moderate A (None Seen) /HPF Urine Bacteria Moderate A (None Seen) /HPF Urine Culture Reflexed YES (NO) Influenza Type A Ag (NEGATIVE) Influenza Type B Ag (NEGATIVE) RSV (PCR) (NEGATIVE) SARS-CoV-2 (PCR) (NEGATIVE) - Progress Progress: improved, re-examined Progress Note: 05/01/25 22:14 Differential diagnosis: Acute viral syndrome, colitis, ureterolithiasis, pyelonephritis, UTI, diverticulitis 34-year-old is evaluated in the ER for fever with bodyaches and left flank pain. She is given fluids and symptomatic treatment, on reevaluation she is feeling much better. Workup showed normal white count, chemistries fairly unremarkable. No UTI. CT showed left lower lobe pneumonia/consolidation. This is probably the reason for her pain and sepsis kind of symptoms. She is hemodynamically stable, not tachypnea or tachycardia. Oxygen saturation in upper 90s on room air. Ambulating in the ER without any limitations. Do not think patient needs to be admitted and can be managed with outpatient antibiotics. She is started on cefdinir and Doxy to go home. Discussed signs symptoms of worsening return to ER which she seems understanding. Stable for discharge Complexity of problems addressed: Moderate acute Complexity of data reviewed/analyzed,: Moderate to extensive Risk of complication: Low risk Counseled pt/family regarding: lab results, diagnosis, rad results Medical Desision Making - Diagnostic Testing Diagnostic test were ordered, analyzed, and reviewed by me: Yes Radiological Interpretation: Reviewed by me, Teleradiologist Report - Risk of complications The pt has a mod risk of morbidity or mortality based on: Need for prescription drug management - Departure Departure Disposition: Home Clinical Impression: Left lower lobe pneumonia Condition: Stable Critical Care Time: No Referrals: YOUSUF JACKSON NP [Primary Care Provider, [facility]] - Follow up with PCP 1 day Instructions: Pneumonia, Adult (DC) Additional Instructions: Take Tylenol/ibuprofen as needed. Follow-up with primary care for reevaluation. Return to ER for persistent high-grade fever, or if develop difficulty breathing etc. Prescriptions: Cefdinir 300 mg [Omnicef 300 mg] 300 mg PO BID #20 cap Doxycycline Hyclate 100 mg [Vibramycin 100 MG] 100 mg PO BID #20 tab
[2025-05-01 20:51] LABS: INFLUENZA A NEGATIVE (NEGATIVE); INFLUENZA B NEGATIVE (NEGATIVE); RESPIRATORY SYNCTIAL VIRUS NEGATIVE (NEGATIVE); SARS-CoV-2 Xpert Express NEGATIVE (NEGATIVE)
[2025-05-01 20:59] LABS: Glucose, Urine Negative (Negative); Protein,Urine Dip Trace (Negative); RBC 0-2 /HPF (0-5); WBC 0-2 /HPF (0-5)
[2025-05-01] MEDS: OMNICEF 300 MG PO STA (22:25)
[2025-05-01 22:40] VITALS: BP 147/102; PULSE 81; RESP 18
[2025-05-01 22:41] VITALS: TEMP 97.9
[2025-05-02 06:25] VITALS: O2SAT 95
--- NOTE | 2025-05-02 09:19 | XRAY ---
Indication: Left flank pain. Fever. Multiple contiguous axial images obtained through the abdomen and pelvis without contrast using renal stone protocol. Comparison: June 08, 2023 Lung bases demonstrates new incompletely visualized moderate-size focus of posterior left lower lobe consolidating airspace disease with tiny reactive effusion. Right lung base clear. Heart not enlarged. No renal calculus or evidence for obstructive uropathy in either system. Noncontrasted stomach and bowel loops appear nonobstructed. Normal appendix. New 21.7 cm fatty hepatomegaly. Again previous cholecystectomy. No free fluid/air. Remaining pancreas, spleen, adrenal glands, kidneys, ureters, bladder, uterus, and aorta are unremarkable for noncontrast exam. Osseous structures intact. Impression: 1. Continued negative renal calculus or evidence for obstructive uropathy. 2. New incompletely visualized left lower lobe consolidating airspace disease with tiny effusion. 3. New fatty hepatomegaly. 4. Remaining CT abdomen/pelvis without contrast exam is negative.
== END 2025-05-01 22:48 | disposition home or self-care (01) ==
LOC: MERGE 19:19 → ED 19:19
DX: J18.9 Pneumonia, unspecified organism (principal); R50.9 Fever, unspecified; M79.10 Myalgia, unspecified site; R51.9 Headache, unspecified; R10.9 Unspecified abdominal pain; Z79.899 Other long term (current) drug therapy